=== PATIENT | female | born 1980 | race Caucasian/White ===

== ENCOUNTER 2019-01-02 01:20 | Inpatient (IN) ==
[2019-01-02] MEDS ORDERED: SODIUM CHLORIDE 0.9% 500 ML IV STA (01:35)
[2019-01-02] MEDS ORDERED: ONDANSETRON INJ 2 MG/ML 2 ML VIAL IV STA (01:35)
[2019-01-02] MEDS ORDERED: SODIUM CHLORIDE 0.9% 1000ML 1,000 ML IV ONE (01:35)
[2019-01-02] MEDS ORDERED: MoRPHine SULFATE 4 MG/ML 1 ML CARP\\VIAL IV STA ×2 (01:35→02:38)
[2019-01-02 01:49] LABS: Hematocrit (blood only) 33.1 % (37-47); Hemoglobin 11.8 g/dL (12.0-16.0); Mean Corpuscular Hemoglobin 31.1 pg (25-34); Mean Corpuscular Hgb Conc 35.6 g/dL (32-36); Mean Corpuscular Volume 87.3 fL (80-100); Mean Platelet Volume 9.5 fL (7.4-10.4); Platelet Count 192 K/uL (130-400); RDW Coefficient of Variation 13.2 % (11.5-14.5); RDW Standard Deviation 42.2 fL (36.4-46.3); Red Blood Count 3.79 M/uL (4.2-5.4); White Blood Count 10.54 K/uL (4.8-10.8)
[2019-01-02 02:14] LABS: Albumin Level 3.2 gm/dl (3.4-5.0); BUN Creatinine Ratio 16.3 (10-20); Calcium 8.6 mg/dl (8.5-10.1); Creatinine Clr Calc Pharmacy 89.7 ml/min; Est GFR (African American) 113.4; Est GFR (Non-African American) 97.8; Potassium 3.5 mmol/L (3.5-5.1)
[2019-01-02 02:16] LABS: Albumin Globulin Ratio 0.9 (0.9-2); Bilirubin,Total 0.3 mg/dl (0.2-1); Globulin 3.4 gm/dl (2.5-4.0); Total Protein 6.6 gm/dl (6.4-8.2)
[2019-01-02] MEDS ORDERED: ACETAMINOPHEN 1,000 MG/100 ML VIAL IV STA (02:38)
[2019-01-02 02:46] LABS: POC Urine Bilirubin Negative (Negative); POC Urine Blood 250 (Negative); POC Urine Glucose Normal (Normal); POC Urine Ketones Negative (Negative); POC Urine Leukocytes 1+ (Negative); POC Urine Nitrite Negative (Negative); POC Urine Protein Trace (Negative); POC Urine Urobilinogen Normal (Normal); POC Urine pH 6 (4.5-7.5)
[2019-01-02 02:51] LABS: Appearance Urine Cloudy (Clear); Bacteria Urine Automated 1+ (Negative); Bilirubin Urine Negative (Negative); Blood Urine 2+ (Negative); Color Urine Yellow; Epithelial Cell Urine Auto >30 /lpf (0-5); Glucose Urine UA Negative (Negative); Ketones Urine Negative (Negative); Leukocyte Esterase Urine 1+ (Negative); Nitrite Urine Negative (Negative); Protein Urine Trace (Negative); RBC Urine Automated >30 /hpf (0-4); Urobilinogen Urine Negative (Negative); WBC Urine Automated >30 /hpf (0-5)
--- NOTE | 2019-01-02 02:57 | Emergency Department Note ---
History of Present Illness General Chief complaint: Flank Pain Stated complaint: FLANK PAIN Time Seen by Provider: 01/02/19 01:25 History of Present Illness Maximum Pain Intensity: 6 This 38-year-old presents to the ER complaining of left flank pain Location: Left flank Quality: Achy Severity: Severe Duration: Today Timing: Symptoms started today Context: Patient was concerned and came in Modifying factors: better with nothing; worse with nothing Patient has a history of kidney stones. She is currently 24 weeks . No problems with the . Patient denies chest pain, dyspnea, fevers, abdominal pain, urinary symptoms, vaginal bleeding. Dr. Ramachandran is her urologist. Home Medications Home Medications Medication Instructions Recorded Confirmed Type prenat.vits,james,wup-ynas-hbeei 1 tab PO DAILY 11/26/18 01/02/19 History Allergies Allergy/AdvReac Type Severity Reaction Status Date / Time latex Allergy Mild redness/willy Verified 01/02/19 02:29 h Cipro Allergy Unknown RASH Verified 10/17/17 17:17 ciprofloxacin Allergy Unknown RASH Verified 01/02/19 02:29 Past Med/Surg History Medical History Fissure of female nipple History of kidney stones History of kidney stones History of nephrolithiasis History of ovarian cyst History of renal calculi History of spontaneous History of varicella Surgical History History of lithotripsy S/P LEEP (loop electrosurgical excision procedure) S/P section S/P eye surgery Family History Father Hypertension Prostate cancer Grandmother (Maternal) Ovarian cancer Social History Preferred Language: Latvian marital status: Feels Safe at Home: Yes Smoking Status: Never smoker Review of Systems All systems reviewed & are unremarkable except as noted in HPI & below Physical Exam Vital Signs Vital Signs - 24 hr 01/02/19 01:22 01/02/19 03:01 01/02/19 04:40 Temperature 36.6 C Temperature Source Oral Sepsis Recent Fever Within 48 Hours No Sepsis New/Unexplained Change in Mental Status No Sepsis Action Taken by Nursing No Action Required Pulse Rate 90 Pulse Rate [Finger] 92 H 80 Respiratory Rate 16 20 18 Respiratory Effort / Characteristics Non-Labored Spontaneous Non-Labored Non-Labored Respiratory Depth Normal Normal Normal Blood Pressure 120/80 Blood Pressure [Left Arm] 109/54 L 108/62 Blood Pressure Mean 93 Blood Pressure Mean [Left Arm] 72 77 Pulse Oximetry 99 100 100 Oxygen Delivery Method Room Air Room Air Room Air VITALS: Vitals are noted on the nurse's note and reviewed by myself. Vital signs stable. GENERAL: Pleasant female who appears in pain, in no acute distress, nondiaphoretic, well-developed well-nourished. SKIN: Capillary reflex less than 2 seconds. HEENT: Normocephalic. PERRLA. EOMI. Nares patent. Mucous membranes moist. Neck is supple without nuchal rigidity. HEART: Regular rate and rhythm without murmurs gallops or rubs. LUNGS: Clear to auscultation bilaterally without wheezes, rales or rhonchi. No retractions or accessory muscle use. ABDOMEN: Positive bowel sounds x 4. Normal tympanic percussion. Soft, 24 weeks , nontender, without masses or organomegaly. Valdovinos sign negative. No guarding or rebound tenderness. No CVA tenderness MUSCULOSKELETAL: No gross musculoskeletal defects. NEURO: Patient was alert and oriented to person place and time. Normal sensation to light and sharp touch. No focal neurological deficits. Course Administered Medications Discontinued Medications Sodium Chloride (Nss 1000ml) 1,000 mls @ 999 mls/hr IV .Q1H1M ONE Stop: 01/02/19 02:35 Last Infusion: 01/02/19 02:50 Dose: 0 mls/hr Documented by: [id number] Admin: 01/02/19 01:47 Dose: 999 mls/hr Documented by: [id number] Sodium Chloride (Nss) 500 mls @ 999 mls/hr IV .Q31M STA Stop: 01/02/19 02:05 Last Infusion: 01/02/19 03:35 Dose: 0 mls/hr Documented by: [id number] Admin: 01/02/19 03:04 Dose: 999 mls/hr Documented by: [id number] Acetaminophen (Ofirmev) 1,000 mg in 100 mls @ 400 mls/hr IV NOW STA Stop: 01/02/19 02:52 Last Infusion: 01/02/19 03:11 Dose: 0 mls/hr Documented by: [id number] Admin: 01/02/19 02:56 Dose: 400 mls/hr Documented by: [id number] Morphine Sulfate (Morphine Sulfate) 4 mg IV NOW STA Stop: 01/02/19 01:36 Last Admin: 01/02/19 01:47 Dose: 4 mg Documented by: [id number] Morphine Sulfate (Morphine Sulfate) 4 mg IV NOW STA Stop: 01/02/19 02:39 Last Admin: 01/02/19 02:45 Dose: 4 mg Documented by: [id number] Ondansetron HCl (Zofran) 4 mg IV NOW STA Stop: 01/02/19 01:36 Last Admin: 01/02/19 01:47 Dose: 4 mg Documented by: [id number] Medical Decision Making Medical Records Attestation: I reviewed the patient's medical records. Home Medications Current Medication List: was personally reviewed by me Laboratory Data Attestation: I reviewed the patient's lab results. Result diagrams: 01/02/19 01:30 01/02/19 01:30 Lab Results 01/02/19 01/02/19 01/02/19 Range/Units 01:30 01:30 02:35 WBC 10.54 (4.8-10.8) K/uL RBC 3.79 L (4.2-5.4) M/uL Hgb 11.8 L (12.0-16.0) g/dL Hct 33.1 L (37-47) % MCV 87.3 (80-100) fL MCH 31.1 (25-34) pg MCHC 35.6 (32-36) g/dL RDW Std Deviation 42.2 (36.4-46.3) fL RDW Coeff of Kapil 13.2 (11.5-14.5) % Plt Count 192 (130-400) K/uL MPV 9.5 (7.4-10.4) fL Sodium 139 (136-145) mmol/L Potassium 3.5 (3.5-5.1) mmol/L Chloride 107 (98-107) mmol/L Carbon Dioxide 25 (21-32) mmol/L Anion Gap 7.0 (3-11) BUN 13 (7-18) mg/dl Creatinine 0.78 (0.6-1.2) mg/dl Est Cr Clr Drug Dosing 89.7 ml/min Est GFR ( Amer) 113.4 Est GFR (Non-Af Amer) 97.8 BUN/Creatinine Ratio 16.3 (10-20) Glucose 85 (70-99) mg/dl Calcium 8.6 (8.5-10.1) mg/dl Total Bilirubin 0.3 (0.2-1) mg/dl AST 12 L (15-37) U/L ALT 20 (12-78) U/L Alkaline Phosphatase 72 (45-117) U/L Total Protein 6.6 (6.4-8.2) gm/dl Albumin 3.2 L (3.4-5.0) gm/dl Globulin 3.4 (2.5-4.0) gm/dl Albumin/Globulin Ratio 0.9 (0.9-2) Urine Color Urine Appearance (Clear) Urine pH (4.5-7.5) POC Urine pH 6 (4.5-7.5) Ur Specific [place] (1.000-1.030) Urine Protein (Negative) POC Urine Protein Trace H (Negative) Urine Glucose (UA) (Negative) POC Ur Glucose (UA) Normal (Normal) Urine Ketones (Negative) POC Urine Ketones Negative (Negative) Urine Blood (Negative) POC Urine Blood 250 H (Negative) Urine Nitrite (Negative) POC Urine Nitrite Negative (Negative) Urine Bilirubin (Negative) POC Urine Bilirubin Negative (Negative) Urine Urobilinogen (Negative) POC Urine Urobilinogen Normal (Normal) Ur Leukocyte Esterase (Negative) POC U Leukocyte Esteras 1+ H (Negative) Urine WBC (Auto) (0-5) /hpf Urine RBC (Auto) (0-4) /hpf U Hyaline Cast (Auto) (0-5) /lpf U Epithel Cells (Auto) (0-5) /lpf Urine Bacteria (Auto) (Negative) 01/02/19 Range/Units 02:35 WBC (4.8-10.8) K/uL RBC (4.2-5.4) M/uL Hgb (12.0-16.0) g/dL Hct (37-47) % MCV (80-100) fL MCH (25-34) pg MCHC (32-36) g/dL RDW Std Deviation (36.4-46.3) fL RDW Coeff of Kapil (11.5-14.5) % Plt Count (130-400) K/uL MPV (7.4-10.4) fL Sodium (136-145) mmol/L Potassium (3.5-5.1) mmol/L Chloride (98-107) mmol/L Carbon Dioxide (21-32) mmol/L Anion Gap (3-11) BUN (7-18) mg/dl Creatinine (0.6-1.2) mg/dl Est Cr Clr Drug Dosing ml/min Est GFR ( Amer) Est GFR (Non-Af Amer) BUN/Creatinine Ratio (10-20) Glucose (70-99) mg/dl Calcium (8.5-10.1) mg/dl Total Bilirubin (0.2-1) mg/dl AST (15-37) U/L ALT (12-78) U/L Alkaline Phosphatase (45-117) U/L Total Protein (6.4-8.2) gm/dl Albumin (3.4-5.0) gm/dl Globulin (2.5-4.0) gm/dl Albumin/Globulin Ratio (0.9-2) Urine Color Yellow Urine Appearance Cloudy A (Clear) Urine pH 6.0 (4.5-7.5) POC Urine pH (4.5-7.5) Ur Specific [place] 1.020 (1.000-1.030) Urine Protein Trace H (Negative) POC Urine Protein (Negative) Urine Glucose (UA) Negative (Negative) POC Ur Glucose (UA) (Normal) Urine Ketones Negative (Negative) POC Urine Ketones (Negative) Urine Blood 2+ H (Negative) POC Urine Blood (Negative) Urine Nitrite Negative (Negative) POC Urine Nitrite (Negative) Urine Bilirubin Negative (Negative) POC Urine Bilirubin (Negative) Urine Urobilinogen Negative (Negative) POC Urine Urobilinogen (Normal) Ur Leukocyte Esterase 1+ H (Negative) POC U Leukocyte Esteras (Negative) Urine WBC (Auto) >30 H (0-5) /hpf Urine RBC (Auto) >30 H (0-4) /hpf U Hyaline Cast (Auto) 5-10 H (0-5) /lpf U Epithel Cells (Auto) >30 H (0-5) /lpf Urine Bacteria (Auto) 1+ H (Negative) Imaging Data Attestation: I personally reviewed and interpreted this imaging study as follows: MDM Narrative Prior records/ancillary studies reviewed. Triage Nursing notes reviewed. The patient's history was concerning for left flank pain. Differential diagnosis: Etiologies such as renal colic, appendicitis, diverticulitis, mesenteric ischemia, aortic pathology, infections, inflammatory bowel disease, PUD, biliary pathology, UTI, as well as others were entertained. Physical examination findings: As above. ER treatment provided: Morphine, Zofran, Tylenol, Rocephin IV fluids On reassessment the patient felt better. Diagnostic interpretation by me: The labs revealed no leukocytosis. Urinalysis revealed concerns for infection. Imaging studies: US RENAL: Right: No hydronephrosis involving the right kidney although there is a prominent renal pelvis. Question presence of multiple renal stones, largest measuring 7 mm at the interpolar level. Echogenic pyramids suggests mesonephric calcinosis. Left: At least moderate hydronephrosis with dilatation of the proximal ureter. Distal ureters are well seen due to overlying bowel gas and gravid uterus. Multiple small stones involving left kidney. Cortical cyst at the interpolar level of the left kidney measures 1.1 cm Cortical cyst at the interpolar level of the left kidney is somewhat irregular in shape and measures up to 1.1 cm Mobile debris within the bladder lumen. Radiologist: Rayo Grissom M.D. Consultation: A consultation was placed with Dr [facility]. The case was discussed and diagnostics were reviewed. The patient was evaluated in the ER for further treatment. It appears that the patient has isolated renal colic from a left sided stone and UTI. Patient was started on antibiotics. Medicine was consulted. Patient is agreeable treatment plan of admission. By the evaluation outlined above emergent etiologies such as appendicitis, diverticulitis, mesenteric ischemia, aortic pathology, inflammatory bowel disease, PUD, biliary pathology, as well as others were deemed relatively unlikely. The pt informed about the findings as listed above. All questions were answered and pleased with the treatment. Case reviewed with my attending The chart was completed utilizing [employer] voice recognition software. Grammatical errors, random word insertions, pronoun errors, and incomplete sentences are an occassional consequence of this system due to software limitations, ambient noise, and hardware issues. Any formal questions or concerns about the content, text, or information contained within the body of this dictation should be directly addressed to the physician assistant branch operations manager for clarification. Impression & Plan Renal colic on left side, UTI (urinary tract infection), Ureterolithiasis Discharge Plan Visit Data Chief Complaint: Flank Pain Stated Complaint: FLANK PAIN ED Provider: Farnaz Escamilla ED Midlevel Provider: Vaishnavi Arauz Discharge Problem: Renal colic on left side, UTI (urinary tract infection), Ureterolithiasis Patient Disposition: Admitted As Inpatient Condition: Good Forms Stand Alone Forms: [facility] Prescriptions Prescriptions: No Action prenat.vits,james,uvp-mivv-yzhpi 1 tab PO DAILY RF: 0 Referrals Referrals: Pete Newberry MD [Primary Care Provider] -
[2019-01-02] MEDS ORDERED: ONDANSETRON INJ 2 MG/ML 2 ML VIAL IV PRN (07:30)
[2019-01-02] MEDS ORDERED: ACETAMINOPHEN 325 MG TAB PO PRN (07:30)
--- NOTE | 2019-01-02 07:41 | Ultrasound Report ---
ULTRASOUND KIDNEYS AND BLADDER CLINICAL HISTORY: Left flank pain. COMPARISON STUDY: Abdominal CT dated 10/18/2017. TECHNIQUE: Real-time, grayscale, and color flow sonography of the kidneys and bladder is performed. I mages are reviewed in the transverse and longitudinal planes. FINDINGS: Kidneys: The kidneys are normal in size and echotexture. The right kidney measures 10.2 cm in length and the left kidney measures 11.7 cm in length. There is moderate left hydroureteronephrosis. No hydr onephrosis is seen on the right. There are numerous nonobstructing renal calculi seen bilaterally. A 1.1 cm cyst is noted in the interpolar left kidney. There is no sonographic evidence of contour defor jazmin renal mass lesion. No perinephric fluid is identified. Bladder: The bladder is normal in morphology. Intraluminal debris is noted. Bilateral ureteral jets w ere seen. An intrauterine gestation is noted. IMPRESSION: 1. Bilateral nephrolithiasis. 2. The kidneys are normal in size. No hydronephrosis is seen on the right. 3. There is moderate left hydroureteronephrosis. Although this could be related to mass effect from t he gravid uterus, given the history of left flank pain and the presence of numerous renal calculi an obstructing ureteral stone is not excluded. 4. Debris is noted in the bladder lumen. Correlation with urinalysis will be required. Electronically signed by: Rafal Floyd M.D. 01/02/2019 7:40 AM
[2019-01-02] MEDS: MoRPHine SULFATE 2 MG/ML CARP IV PRN (08:05)
[2019-01-02] MEDS: SODIUM CHLORIDE 0.9% 1000ML 1,000 ML IV SCH ×2 (08:05→17:41)
--- NOTE | 2019-01-02 08:20 | History and Physical Report ---
DATE OF ADMISSION: 01/02/2019 CHIEF COMPLAINT: Left flank pain. HISTORY OF PRESENT ILLNESS: This is a 38-year-old female with past medical history significant for multiple kidney stones with history of cystoscopy, recently passed kidney stones by herself in October. She is 4, para 3, currently about 24 weeks , comes with left flank pain. The patient states the pain started a couple of days ago, but it got worse last night in the left flank radiating to groins, associated with some nausea, vomiting,mild burning micturition. She says she felt that she could not pass her urine thought she might had hydronephrosis and came to the ER. With IV fluids, she is able to micturate okay now. Ultrasound showed left hydronephrosis and multiple kidney stones. Official read is still pending. The patient denies any fever or chills. Somewhat constipated. Denies any blood in stools or black stools. No chest pain or shortness of breath. No cough, no headache, no blurred vision, no sore throat, no difficulty swallowing. Appetite is okay. Ambulating fine. No rash, no edema. Currently resting comfortably and hemodynamically stable, somewhat tearful because of pain and also because of her 3 kids at home. ALLERGIES: No known drug allergies. PAST MEDICAL HISTORY: As mentioned above. PAST SURGICAL HISTORY: , cystoscopies with stent placement. history of lithotripsy in 2014. MEDICATIONS: vitamins. FAMILY HISTORY: Significant for father had prostate cancer. Maternal grandmother had MOBILE DEVELOPER cancer. SOCIAL HISTORY: , smokes half pack a day. No alcohol use, no drug use. REVIEW OF SYMPTOMS: As per HPI. Rest of the review of systems is negative. PHYSICAL EXAMINATION: GENERAL: The patient is of moderate build, not in acute distress. VITAL SIGNS: Temperature 36.6, pulse 80, respiratory rate 18, blood pressure 108/62, oxygen saturation 100% on room air. HEENT: No pallor, no icterus. Pupils equal, round, reactive to light. NECK: No JVD, no neck masses, no carotid bruits. CARDIOVASCULAR: S1, S2 heard, regular rate and rhythm, no murmur, no gallop. RESPIRATORY SYSTEM: Normal AP diameter. No accessory muscle use. No wheezing, no crackles. ABDOMEN: Soft, bowel sounds present. Left CVA tenderness present. CENTRAL NERVOUS SYSTEM: Cranial nerves II-XII grossly intact, nonfocal. EXTREMITIES: No edema, no erythema. LABORATORY DATA: WBC 10.5, hemoglobin 11.8, hematocrit 33.1, platelets 192. Sodium 139, potassium 3.5, chloride 107, bicarbonate 25, BUN 13, creatinine 0.7, serum glucose 85, calcium 8.6, total bilirubin 0.3, AST 12, ALT 20, alkaline phosphatase 72. Urinalysis cloudy and positive for blood and also for leukocyte esterase. Renal ultrasound, unofficial report - moderate left hydronephrosis with dilatation in the proximal ureter on the left side. Multiple small stones in the left kidney. No hydronephrosis in the right kidney, though there is a prominent renal pelvis, question of presence of multiple renal stones, largest measuring 7 mm at the interpolar level. ASSESSMENT AND PLAN: This is a 38-year-old female who presents with left flank pain, found to have left hydronephrosis, possible obstructing kidney stone with bilateral multiple kidney stones. 1. Kidney stones, multiple on both sides with moderate left hydronephrosis, comes with left flank pain. History of kidney stones and cystoscopies in the past. Follows with urology. We will keep her n.p.o., IV fluids, pain control, and IV Zofran p.r.n. for nausea and consult urology. To keep her n.p.o. until seen by urology. 2. Possible urinary tract infection. In Emergency Room received Rocephin. We will continue same until the cultures are back. 3. . 4, para 3, with 24 weeks' , seems to be doing okay. We will consult obstetrics/gynecology while she is in the hospital. 4. Deep venous thrombosis prophylaxis, sequential compression devices. DISPOSITION: Admit to medical floor. Expect to discharge home and follow with family doctor. Level 1, full code. MTDD
--- NOTE | 2019-01-02 08:36 | Urology Consultation ---
Date of Consultation January 02, 2019 Assessment & Plan (1) Renal colic on left side: 38 YO F 24 weeks with likely left ureteral stone, renal colic, mild/moderate left hydro on Renal US, ?UTI. History of multiple stones with spontaneous passage. Patient spontaneously passed 2 stones at home ~2 weeks ago. Her pain is currently controlled, remains on ceftriaxone. Afebrile. Labs stable. Will avoid surgical intervention unless there is a worsening of patient status. Please contact our service should uncontrolled pain or fever develop for urgent stent placement. Will continue to follow. (2) : (3) Ureterolithiasis: (4) UTI (urinary tract infection): History of Present Illness Attending Physician: Constantine Dee MD History of Present Illness 38 YO F 24 weeks with likely left ureteral stone, renal colic, mild/moderate left hydro on Renal US, ?UTI. Hx of nephrolithiasis with spontaneous stone passage. Last seen by Dr. Ramachandran in 2018. Reports passing 2 stones spontaneously at home ~2 weeks ago without too much difficulty. Also reports spontaneous stone passage in her previous pregnancies ~10 years ago. Appears comfortable this morning. Pain is controlled with medication. No fevers/chills. No nausea/vomiting. Labs and US reviewed. Allergies Allergy/AdvReac Type Severity Reaction Status Date / Time latex Allergy Mild redness/willy Verified 01/02/19 02:29 h Cipro Allergy Unknown RASH Verified 10/17/17 17:17 ciprofloxacin Allergy Unknown RASH Verified 01/02/19 02:29 Home Medications Home Medications Medication Instructions Recorded Confirmed Type prenat.vits,james,bfa-qkkh-gnirg 1 tab PO DAILY 11/26/18 01/02/19 History Patient History Medical History Fissure of female nipple History of kidney stones History of kidney stones History of nephrolithiasis History of ovarian cyst History of renal calculi History of spontaneous History of varicella Surgical History History of lithotripsy S/P LEEP (loop electrosurgical excision procedure) S/P section S/P eye surgery Family History Father Hypertension Prostate cancer Grandmother (Maternal) Ovarian cancer Social History Preferred Language: Greek Communication Ability: Effective Maintenance Team Member Required: No Beliefs That Will Affect Care: None marital status: Current Living Situation: Spouse and Family Other Information That Helps Us Care for You: No Feels Safe at Home: Yes Safety Concerns: Feels Safe At This Time Smoking Status: Former smoker Tobacco Cessation Education Requested by Patient: No Hx Alcohol Use: No Hx Substance Use: No Review of Systems Constitutional: no fever and no chills Eyes: no worsening vision Ear, Nose, Mouth, Throat: no hearing loss Respiratory: no dyspnea Cardiovascular: no chest pain Gastrointestinal: no nausea and no vomiting Genitourinary: + flank pain; no difficulty urinating Neurologic: no confusion Psychiatric: no problem reported Endocrine: no fatigue Physical Exam Constitutional: WD/WN, vitals as above ENMT: Ears: no hearing impairment Neck: normal visual inspection Respiratory: normal respiratory effort; does not use accessory muscles Cardiovascular: Vessels: no JVD Skin: no rashes, warm and dry Psychiatric: A+Ox3, euthymic affect Results & Data Vital Signs (Past 12 Hours) Vital Signs Temp Pulse Pulse Resp BP BP Pulse Ox 01/02/19 06:55 36.5 C 75 16 116/71 99 01/02/19 06:40 77 20 112/57 L 98 01/02/19 04:40 80 18 108/62 100 01/02/19 03:01 92 H 20 109/54 L 100 01/02/19 01:22 36.6 C 90 16 120/80 99
--- NOTE | 2019-01-02 09:42 | OB/GYN Consultation ---
Date of Consultation January 02, 2019 Assessment & Plan (1) Renal colic on left side: (2) Ureterolithiasis: The patient is certainly stable from an obstetrical standpoint. Agree with plan of aggressive hydration and try to avoid surgery. Patient's IV fluids only running at 100 cc/h. Patient could easily tolerate 200 cc/h if felt to be clinically prudent. From an obstetrical standpoint I do not see any reason for the patient to be n.p.o. Antibiotic choice appropriate for . Would recommend heart tones being checked every shift, and call with any questions problems or difficulties. History of Present Illness Reason for Consultation: 23-1/2 weeks gestational age with left ureteral stone 23+ weeks gestational age with left ureteral stone Attending Physician: Constantine Dee MD History of Present Illness Patient is a 38-year-old 7 para 3 with an EDC of 28 April at 23+ weeks gestational age admitted to the hospitalist service with left ureteral stoneThe patient was having pain at home and tried to self hydrate. Patient is having difficulty urinating and presented to the emergency room for evaluation. The patient has a history of kidney stones both with and without . She has had previous surgery for kidney stones. Patient was able to spontaneously passed 2 stones in October. The patient has had an unremarkable course today. Her blood type is B+, antibody negative, rubella immune, hepatitis B negative, she had a negative cell free DNA screen, she had an abnormal Pap smear with colposcopy showing mild dysplasia. Allergies Allergy/AdvReac Type Severity Reaction Status Date / Time latex Allergy Mild redness/willy Verified 01/02/19 02:29 h Cipro Allergy Unknown RASH Verified 10/17/17 17:17 ciprofloxacin Allergy Unknown RASH Verified 01/02/19 02:29 Home Medications Home Medications Medication Instructions Recorded Confirmed Type prenat.vits,james,pmn-[id number]-piqoc 1 tab PO DAILY 11/26/18 01/02/19 History Patient History Medical History Fissure of female nipple History of kidney stones History of kidney stones History of nephrolithiasis History of ovarian cyst History of renal calculi History of spontaneous History of varicella Surgical History History of lithotripsy S/P LEEP (loop electrosurgical excision procedure) S/P section S/P eye surgery Family History Father Hypertension Prostate cancer Grandmother (Maternal) Ovarian cancer Social History Preferred Language: Hungarian Communication Ability: Effective Pot Feeder Required: No Beliefs That Will Affect Care: None marital status: Current Living Situation: Spouse and Family Other Information That Helps Us Care for You: No Feels Safe at Home: Yes Safety Concerns: Feels Safe At This Time Smoking Status: Former smoker Tobacco Cessation Education Requested by Patient: No Hx Alcohol Use: No Hx Substance Use: No Physical Exam Physical Exam: Gravid female in no acute distress, positive heart tones, remainder of examination deferred Results & Data Vital Signs (Past 12 Hours) Vital Signs Temp Pulse Pulse Resp BP BP Pulse Ox 01/02/19 06:55 97.7 F 75 16 116/71 99 01/02/19 06:40 77 20 112/57 L 98 01/02/19 04:40 80 18 108/62 100 01/02/19 03:01 92 H 20 109/54 L 100 01/02/19 01:22 97.9 F 90 16 120/80 99 PG Care Time/CCT Total # of Minutes Spent Total Time Spent with Patient: Total time spent is greater than 50% in coordination of care (as documented) at patient's floor/unit and/or counseling patient:
[2019-01-02] MEDS: PRENATAL VITAMIN 1 TAB PO SCH (11:01)
--- NOTE | 2019-01-02 18:48 | History & Physical Bridge Note ---
Date of Service January 02, 2019 History & Physical Bridge Note Patient seen and examined today. No pain on my exam in the afternoon. Will cont ceftriaxone and follow culture results. Hopeful discharge tomorrow.
[2019-01-03] MEDS: SODIUM CHLORIDE 0.9% 1000ML 1,000 ML IV SCH (02:28)
[2019-01-03 08:02] LABS: Hematocrit (blood only) 27.4 % (37-47); Hemoglobin 9.5 g/dL (12.0-16.0); Mean Corpuscular Hemoglobin 30.7 pg (25-34); Mean Corpuscular Hgb Conc 34.7 g/dL (32-36); Mean Corpuscular Volume 88.7 fL (80-100); Mean Platelet Volume 9.1 fL (7.4-10.4); Platelet Count 141 K/uL (130-400); RDW Coefficient of Variation 13.5 % (11.5-14.5); RDW Standard Deviation 43.2 fL (36.4-46.3); Red Blood Count 3.09 M/uL (4.2-5.4); White Blood Count 8.13 K/uL (4.8-10.8)
[2019-01-03] MEDS: MoRPHine SULFATE 2 MG/ML CARP IV PRN (08:21)
[2019-01-03 08:29] LABS: Creatinine Clr Calc Pharmacy 122.8 ml/min; Est GFR (African American) 138.2; Est GFR (Non-African American) 119.3; Potassium 3.7 mmol/L (3.5-5.1)
[2019-01-03] MEDS: PRENATAL VITAMIN 1 TAB PO SCH (08:31)
[2019-01-03] MEDS ORDERED: cefTRIAXone SODIUM 1,000 MG in DEXTROSE 5% 50 ML IV SCH (09:00)
--- NOTE | 2019-01-03 10:15 | Urology Progress Note ---
Date of Service January 03, 2019 Assessment & Plan (1) Renal colic on left side: 38 YO F 24 weeks with likely left ureteral stone, renal colic, mild/moderate left hydro on Renal US, ?UTI. Patient feeling much better today. UC&S pending - recommend antibiotics per sensitivities for a total of 10d of therapy if positive. Pain control PRN. Outpatient urology follow up has been arranged. Thank you for allowing us to participate in the inpatient care of Ms. Vallejo. Please contact our service if we can assist further. (2) UTI (urinary tract infection): (3) Ureterolithiasis: Subjective 38 YO F 24 weeks with likely left ureteral stone, renal colic, mild/moderate left hydro on Renal US, ?UTI. Patient reports feeling much better this morning. Pain controlled. No fevers/chills. No nausea/vomiting. Voiding spontaneously. Review of Systems Review of Systems: Per HPI. Physical Exam Physical Exam: WN/WD NAD +. Resp effort normal. No JVD. A&Ox3, appropriate affect. Results & Data Vital Signs (Past 12 Hours) Vital Signs Temp Pulse Pulse Resp BP BP Pulse Ox 01/03/19 07:52 36.7 C 72 18 94/58 L 95 01/02/19 23:07 37.0 C 82 16 90/50 L 82/40 L 96
--- NOTE | 2019-01-03 18:10 | Discharge Summary ---
Date of Service January 03, 2019 Principal Diagnosis Kidney stone Discharge Exam Constitutional WD/WN, vitals as above ENMT Ears: no hearing impairment Neck normal visual inspection Respiratory normal respiratory effort; does not use accessory muscles Cardiovascular Vessels: no JVD Skin no rashes, warm and dry Psychiatric A+Ox3, euthymic affect Discharge Data Allergies Allergy/AdvReac Type Severity Reaction Status Date / Time latex Allergy Mild redness/willy Verified 01/02/19 02:29 h Cipro Allergy Unknown RASH Verified 10/17/17 17:17 ciprofloxacin Allergy Unknown RASH Verified 01/02/19 02:29 Consultations 01/02/19 05:25 ED Decision to Admit Stat 01/02/19 06:09 ED Decision to Admit Stat 01/02/19 08:00 Consult Obstetrics Routine Consult Urology Routine Ordered Studies 01/02/19 01:35 US renal/blad retro comp Urgent Hospital Course (1) Renal colic on left side: 38 YO F 24 weeks with likely left ureteral stone, renal colic, mild/moderate left hydro on Renal US, ?UTI. Patient feeling much better today. - Dishcarged on 10 days of cefdinir as the urine culture grew out 3 bugs and was likely skin deepika. Had improved on ceftriaxone, so continued that. 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 (2) UTI (urinary tract infection): (3) Ureterolithiasis: As above Total Time Total Time Spent Total Time Spent (In Minutes): 34 Discharge Plan Discharge Items Patient Disposition: Home - Self-Care Reason For Visit: LEFT FLANK PAIN Discharge Diagnosis: Left kidney stone Condition: Good Discharge Goals: Decrease discomfort and Improve function Activity: Resume your previous activity Non-emergency contact: Primary Care Provider and Urologist Call non-emergency contact if: your symptoms worsen, your pain is not controlled, your pain is worsening and your temperature is above 101 Follow-up/Referrals: [facility] Obstetrics & Gynecology [Provider Group] - 01/06/19 11:30 am (Please, follow up at [facility] Office on SundayJanuary 06 at 11:30 am. *If you need to change this appointment, call the office at [phone].) Pete Newberry MD [Primary Care Provider] - Diet: Regular Addtl Provider Instructions: Ms. Vallejo, You were admitted to the hospital for a kidney stone on the left side. You do have multiple kidney stones on either side. Please drink plenty of water to help pass this stone. We have given you scripts for an antibiotic (Omnicef), pain control, and nausea. Take the antibiotic starting tomorrow morning and take it until it is gone or until the urologist tells you to stop it. Please use Tylenol for the pain first, then oxycodone if needed. As we discussed, if you need the oxycodone for more than 1-2 more doses, please call your transplant registered nurse and the urology office, or come directly to the hospital. Prescriptions: New cefdinir 300 mg capsule 300 mg PO BID Qty: 16 RF: 0 oxycodone 5 mg tablet 2.5 mg PO TID PRN (Reason: pain) Qty: 3 RF: 0 ondansetron 4 mg tablet,disintegrating 4 mg PO Q6H PRN (Reason: nausea and vomiting) Qty: 20 RF: 0 Continued prenat.vits,james,[id number] 1 tab PO DAILY RF: 0 Stand-Alone Forms: [facility] Discharge Orders: Discharge Order (Routine); Ordered 01/03/19 Ordered By: Constantine Dee Admission Data Admit Date/Time: 01/02/19 05:50 Attending Provider: Constantine Dee Admit Provider: Harish Rebolledo Primary Care Provider: Pete Newberry Other Providers: Constantine Dee ; Harish Rebolledo ; Baldomero Serrano ; Micaela Hogan J. Frederick ; Merna Hein ; Rad Bahena Jr ; Melly Martinez ; Sneha Miranda ; Kylee Grant ; Sierra Rubio ; Tiffanie Kate ; Kim Stewart ; Paula Solomon ; Du Drake ; Tomy Ramachandran Service: Medical Other Interventions: Discharge Summary Assessment (RN) Last Done: 01/03/19 13:03 DC Date/Time DO NOT enter until pt leaves facility: 01/03/19 14:16
[2019-01-04] MEDS ORDERED: [UNRECOGNIZED DRUG - OTHER] PO SCH (09:00)
== END 2019-01-03 14:16 | disposition home or self-care (01) | DRG 832 ==
LOC: ED 01:20 → SUATTDRO 05:50 → 3W 05:50

== ENCOUNTER 2019-02-22 18:12 | Inpatient (IN) ==
[2019-02-22] MEDS ORDERED: ONDANSETRON INJ 2 MG/ML 2 ML VIAL IV STA ×2 (18:32→21:30)
[2019-02-22] MEDS ORDERED: SODIUM CHLORIDE 0.9% 1000ML 1,000 ML IV SCH (18:45)
[2019-02-22 18:52] LABS: Basophils # (auto) 0.01 K/uL (0-0.2); Basophils % (auto) 0.1 %; Eosinophils # (auto) 0.05 K/uL (0-0.5); Eosinophils % (auto) 0.4 %; Hematocrit (blood only) 31.6 % (37-47); Hemoglobin 10.8 g/dL (12.0-16.0); Immature Granulocytes # (auto) 0.05 K/uL (0.00-0.02); Immature Granulocytes % (auto) 0.4 %; Lymphocytes % (auto) 13.1 %; Mean Corpuscular Hemoglobin 30.4 pg (25-34); Mean Corpuscular Hgb Conc 34.2 g/dL (32-36); Mean Platelet Volume 9.4 fL (7.4-10.4); Monocytes # (auto) 0.49 K/uL (0.11-0.59); Monocytes % (auto) 4.3 %; Neutrophils # (auto) 9.34 K/uL (1.4-6.5); Neutrophils % (auto) 81.7 %; Platelet Count 218 K/uL (130-400); RDW Coefficient of Variation 13.7 % (11.5-14.5); RDW Standard Deviation 45.1 fL (36.4-46.3); Red Blood Count 3.55 M/uL (4.2-5.4); White Blood Count 11.44 K/uL (4.8-10.8)
[2019-02-22] MEDS: MoRPHine SULFATE 4 MG/ML 1 ML CARP\\VIAL IV PRN ×5 (18:54→22:43)
[2019-02-22 19:13] LABS: Appearance Urine Cloudy (Clear); Bacteria Urine Automated 2+ (Negative); Bilirubin Urine Negative (Negative); Blood Urine 3+ (Negative); Color Urine Yellow; Epithelial Cell Urine Auto >30 /lpf (0-5); Glucose Urine UA Negative (Negative); Ketones Urine Negative (Negative); Leukocyte Esterase Urine Trace (Negative); Nitrite Urine Negative (Negative); Protein Urine 1+ (Negative); RBC Urine Automated >30 /hpf (0-4); Specific Gravity Urine 1.023 (1.000-1.030); Urobilinogen Urine Negative (Negative); pH Urine 6.5 (4.5-7.5)
[2019-02-22 19:14] LABS: Albumin Globulin Ratio 0.8 (0.9-2); Albumin Level 2.8 gm/dl (3.4-5.0); BUN Creatinine Ratio 16.4 (10-20); Bilirubin,Total 0.2 mg/dl (0.2-1); Calcium 8.7 mg/dl (8.5-10.1); Creatinine Clr Calc Pharmacy 90.9 ml/min; Est GFR (African American) 115.1; Est GFR (Non-African American) 99.3; Globulin 3.5 gm/dl (2.5-4.0); Potassium 3.9 mmol/L (3.5-5.1); Total Protein 6.3 gm/dl (6.4-8.2)
[2019-02-22 19:32] LABS: Calcium Oxalate Crystals Urine Present (None Prsent); Renal Epithelial Cells Urine 0-5 /lpf (0-5)
--- NOTE | 2019-02-22 19:36 | Ultrasound Report ---
RENAL ULTRASOUND CLINICAL HISTORY: Left flank pain. History of stones. . COMPARISON STUDY: CT of the abdomen and pelvis October 18, 2017. Renal ultrasound February 16, 2019. TECHNIQUE: Sonography of the kidneys and the urinary bladder was performed. FINDINGS: The right kidney measures 9.8 cm in maximal dimension and the left measures 10.6 cm. Modera te left hydronephrosis has developed since exam of February 16, 2019. Right hydronephrosis shown on pr ior exam has nearly completely resolved. No ureteral calculi identified although these are often occu lt by sonography of the distal ureters are obscured by a gravid uterus. The bladder is not well asses sed on this exam. Single viable intrauterine gestation is noted. Bilateral nephrolithiasis is noted. IMPRESSION: 1. Interval development of moderate left hydronephrosis with near complete resolution of right hydron ephrosis since ultrasound of February 16, 2019. This finding could be due to mass effect from the grav id uterus or an occult ureteral calculus. 2. Bilateral nephrolithiasis. Electronically signed by: Raudel Callejas M.D. 02/22/2019 7:35 PM
[2019-02-22] MEDS ORDERED: ACETAMINOPHEN 1,000 MG/100 ML VIAL IV STA (19:59)
[2019-02-22] MEDS ORDERED: cefTRIAXone SODIUM 1,000 MG/50 ML BAG IV STA (20:26)
--- NOTE | 2019-02-22 22:17 | Emergency Department Note ---
Entered by Obdulio Martinez acting as a scribe for History of Present Illness General Chief complaint: Kidney Stone Stated complaint: KIDNEY STONES, PASSED SEVERAL, 31 WEEKS PREG Time Seen by Provider: 02/22/19 18:28 Source: patient Limitations: no limitations History of Present Illness Onset (ago): hour(s) 3 Location: left (flank) Severity: similar to prior episodes Pain Consistency: + constant Maximum Pain Intensity: 10 Current Pain Intensity: 8 Quality: + constant Associated symptoms: no fever/chills Treatments prior to arrival: other (tylenol, percocet) The patient is a 38 year old female who presents to the Emergency Room with complaints of constant left-sided flank pain starting 3 hours ago. The patient states she has had about 60 kidney stones before. She states she was admitted to the hospital a month ago for kidney stones and a kidney infection. She states she was told she had 3 kidney stones at that time. She notes she was in the ED 6 days ago. She states she has passed 2 kidney stones. She notes she took Tylenol at 1200 and then took it again at 1600. She notes she took a Percocet later on in the day because her pain did not subside. She states her pain is 8/10. The patient states she is 31 weeks right now and states she had 4 children at home. 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 The patient states she has had stents and surgeries before. She denies having a fever. Home Medications Home Medications Medication Instructions Recorded Confirmed Type prenat.vits,james,[id number] 1 tab PO DAILY 11/26/18 02/22/19 History acetaminophen [Tylenol Extra 500 mg PO DIRECTED PRN 02/16/19 02/22/19 History Strength] ondansetron 4 mg PO Q6H PRN 02/16/19 02/22/19 History oxycodone-acetaminophen 1 tab PO Q8H PRN 02/16/19 02/22/19 History Allergies Allergy/AdvReac Type Severity Reaction Status Date / Time latex Allergy Mild redness/willy Verified 02/22/19 18:44 h Cipro Allergy Unknown RASH Verified 10/17/17 17:17 ciprofloxacin Allergy Unknown RASH Verified 02/22/19 18:44 Past Med/Surg History Medical History Right lower quadrant abdominal pain (Resolved) UTI (urinary tract infection) (Resolved) Fissure of female nipple History of kidney stones History of kidney stones History of nephrolithiasis History of ovarian cyst History of renal calculi History of spontaneous History of varicella Surgical History H/O cystoscopy (Resolved) H/O lithotripsy (Resolved) History of delivery (Resolved) History of lithotripsy S/P LEEP (loop electrosurgical excision procedure) S/P section S/P eye surgery Family History Father Hypertension Prostate cancer Grandmother (Maternal) Ovarian cancer Social History Preferred Language: Maltese Communication Ability: Effective Documentation Billing Clerk Required: No Beliefs That Will Affect Care: None marital status: Current Living Situation: Spouse and Family Feels Safe at Home: Yes Safety Concerns: Feels Safe At This Time Smoking Status: Former smoker Hx Alcohol Use: No Hx Substance Use: No Review of Systems See HPI for pertinent positives & negatives. and A total of 10 systems reviewed and were otherwise negative Physical Exam Vital Signs Vital Signs - 24 hr 02/22/19 18:15 02/22/19 20:06 Temperature 36.7 C Temperature Source Oral Sepsis Recent Fever Within 48 Hours No Sepsis New/Unexplained Change in Mental Status No Sepsis Action Taken by Nursing No Action Required Pulse Rate 88 Pulse Rate [Right] 71 Pulse Rhythm Regular Pulse Rhythm [Right] Regular Pulse Strength Normal Pulse Strength [Right] Normal Respiratory Rate 22 18 Respiratory Effort / Characteristics Non-Labored Spontaneous Non-Labored Spontaneous Respiratory Depth Normal Normal Respiratory Pattern Regular Regular Blood Pressure 121/74 Blood Pressure [Right Arm] 116/79 Blood Pressure Mean 89 Blood Pressure Mean [Right Arm] 91 Blood Pressure Position Sitting Blood Pressure Position [Right Arm] Sitting Pulse Oximetry 99 100 Oxygen Delivery Method Room Air GENERAL: Patient is awake, alert, and in no acute distress.Patient is resting comfortably and is somewhat anxious appearing. EYES: The conjunctivae are clear. The pupils are round and reactive. EARS, NOSE, MOUTH AND THROAT: The nose is without any evidence of any deformity. Mucous membranes are moist.Tongue is midline NECK: The neck is nontender and supple. RESPIRATORY: Normal respiratory effort is noted. There is no evidence of whe ezing rhonchi or rales to auscultation. CARDIOVASCULAR: Regular rate and rhythm noted. There no murmurs rubs or gallops normal S1 normal S2 GASTROINTESTINAL: The abdomen is soft, gravid in appearance. Bowel sounds are present in all quadrants. There is no tenderness, rigidity, or guarding. BACK: No midline tenderness or or step-off noted range of motion in flexion extension as well as rotation no signs of muscle spasm noted. MUSCULOSKELETAL/EXTREMITIES: There is no evidence of gross deformity. Full range of motion is noted in the hips and shoulders. SKIN: There is no obvious evidence of any rash. There are no petechiae, pallor or cyanosis noted. NEUROLOGIC: Patient is awake alert and oriented x3. Course 1828: The patient was evaluated in room B5, and a complete history and physical examination were performed. 2019: I spoke with Dr. Farfan - [facility]. He recommends medical admission with OB consult to manage the patient's condition. 2034: I [facility] the [facility] will evaluate the patient for further management Administered Medications Sodium Chloride (Nss 1000ml) 1,000 mls @ 125 mls/hr IV .Q8H SRINIVAS Stop: 03/24/19 23:30 Last Infusion: 02/23/19 00:40 Dose: 125 mls/hr Documented by: [id number] Infusion: 02/23/19 00:26 Dose: 0 mls/hr Documented by: [id number] Admin: 02/23/19 00:25 Dose: 125 mls/hr Documented by: [id number] Acetaminophen (Ofirmev) 1,000 mg in 100 mls @ 400 mls/hr IV Q8 SRINIVAS Stop: 03/25/19 00:00 Last Infusion: 02/23/19 00:40 Dose: 0 mls/hr Documented by: [id number] Infusion: 02/23/19 00:26 Dose: 400 mls/hr Documented by: [id number] Admin: 02/23/19 00:25 Dose: 400 mls/hr Documented by: [id number] Morphine Sulfate (Morphine Sulfate) 2 mg IV Q3H PRN PRN Reason: Pain Stop: 03/08/19 23:30 Last Admin: 02/23/19 01:42 Dose: 2 mg Documented by: [id number] Promethazine HCl (Phenergan) 12.5 mg PO Q6H PRN PRN Reason: Nausea And Vomiting Stop: 03/25/19 01:15 Last Admin: 02/23/19 01:42 Dose: 12.5 mg Documented by: [id number] Discontinued Medications Sodium Chloride (Nss 1000ml) 1,000 mls @ 999 mls/hr IV .Q1H1M SRINIVAS Stop: 02/22/19 19:45 Last Infusion: 02/22/19 20:05 Dose: 0 mls/hr Documented by: [id number] Admin: 02/22/19 18:54 Dose: 999 mls/hr Documented by: [id number] Acetaminophen (Ofirmev) 1,000 mg in 100 mls @ 400 mls/hr IV NOW STA Stop: 02/22/19 20:13 Last Infusion: 02/22/19 20:32 Dose: 0 mls/hr Documented by: [id number] Admin: 02/22/19 20:04 Dose: 400 mls/hr Documented by: [id number] Ceftriaxone Sodium (Rocephin) 1,000 mg in 50 mls @ 100 mls/hr IV NOW STA Stop: 02/22/19 20:55 Last Infusion: 02/22/19 21:40 Dose: 0 mls/hr Documented by: [id number] Admin: 02/22/19 21:03 Dose: 100 mls/hr Documented by: [id number] Morphine Sulfate (Morphine Sulfate) 4 mg IV Q15M PRN PRN Reason: Pain Stop: 03/08/19 18:31 Last Admin: 02/22/19 22:43 Dose: 4 mg Documented by: [id number] Admin: 02/22/19 21:55 Dose: 4 mg Documented by: [id number] Admin: 02/22/19 21:05 Dose: 4 mg Documented by: [id number] Admin: 02/22/19 20:04 Dose: 4 mg Documented by: [id number] Admin: 02/22/19 18:54 Dose: 4 mg Documented by: [id number] Ondansetron HCl (Zofran) 4 mg IV NOW STA Stop: 02/22/19 18:33 Last Admin: 02/22/19 18:54 Dose: 4 mg Documented by: [id number] Ondansetron HCl (Zofran) 4 mg IV NOW STA Stop: 02/22/19 21:31 Last Admin: 02/22/19 21:55 Dose: 4 mg Documented by: [id number] Medical Decision Making Differential Diagnosis Differential diagnoses includes but is not limited to gastritis, peptic ulcer disease, GERD, gallbladder disease, pancreatitis, small bowel obstruction, acute coronary syndrome, pericarditis, ischemic bowel, irritable bowel disease, irritable bowel syndrome, appendicitis, diverticulitis, malignancy, hernia, urinary tract infection, torsion, /ectopic , perforation, trauma, infectious. Medical Records Attestation: I reviewed the patient's medical records. Home Medications Current Medication List: was personally reviewed by me Laboratory Data Attestation: I reviewed the patient's lab results. Result diagrams: 02/22/19 18:46 02/22/19 18:46 Lab Results 02/22/19 02/22/19 02/22/19 Range/Units 18:23 18:46 18:46 WBC 11.44 H (4.8-10.8) K/uL RBC 3.55 L (4.2-5.4) M/uL Hgb 10.8 L (12.0-16.0) g/dL Hct 31.6 L (37-47) % MCV 89.0 (80-100) fL MCH 30.4 (25-34) pg MCHC 34.2 (32-36) g/dL RDW Std Deviation 45.1 (36.4-46.3) fL RDW Coeff of Kapil 13.7 (11.5-14.5) % Plt Count 218 (130-400) K/uL MPV 9.4 (7.4-10.4) fL Immature Gran % (Auto) 0.4 % Neut % (Auto) 81.7 % Lymph % (Auto) 13.1 % Wells % (Auto) 4.3 % Eos % (Auto) 0.4 % Baso % (Auto) 0.1 % Immature Gran # (Auto) 0.05 H (0.00-0.02) K/uL Neut # (Auto) 9.34 H (1.4-6.5) K/uL Lymph # (Auto) 1.50 (1.2-3.4) K/uL Wells # (Auto) 0.49 (0.11-0.59) K/uL Eos # (Auto) 0.05 (0-0.5) K/uL Baso # (Auto) 0.01 (0-0.2) K/uL Sodium 138 (136-145) mmol/L Potassium 3.9 (3.5-5.1) mmol/L Chloride 108 H (98-107) mmol/L Carbon Dioxide 23 (21-32) mmol/L Anion Gap 7.0 (3-11) BUN 13 (7-18) mg/dl Creatinine 0.77 (0.6-1.2) mg/dl Est Cr Clr Drug Dosing 90.9 ml/min Est GFR ( Amer) 115.1 Est GFR (Non-Af Amer) 99.3 BUN/Creatinine Ratio 16.4 (10-20) Glucose 100 H (70-99) mg/dl Calcium 8.7 (8.5-10.1) mg/dl Total Bilirubin 0.2 (0.2-1) mg/dl AST 11 L (15-37) U/L ALT 16 (12-78) U/L Alkaline Phosphatase 106 (45-117) U/L Total Protein 6.3 L (6.4-8.2) gm/dl Albumin 2.8 L (3.4-5.0) gm/dl Globulin 3.5 (2.5-4.0) gm/dl Albumin/Globulin Ratio 0.8 L (0.9-2) Lipase 118 (73-393) U/L Specimen Hemolysis Urine Color Yellow Urine Appearance Cloudy A (Clear) Urine pH 6.5 (4.5-7.5) Ur Specific [place] 1.023 (1.000-1.030) Urine Protein 1+ H (Negative) Urine Glucose (UA) Negative (Negative) Urine Ketones Negative (Negative) Urine Blood 3+ H (Negative) Urine Nitrite Negative (Negative) Urine Bilirubin Negative (Negative) Urine Urobilinogen Negative (Negative) Ur Leukocyte Esterase Trace H (Negative) Urine WBC (Auto) 10-30 H (0-5) /hpf Urine RBC (Auto) >30 H (0-4) /hpf U Hyaline Cast (Auto) 10-30 H (0-5) /lpf U Epithel Cells (Auto) >30 H (0-5) /lpf Urine Bacteria (Auto) 2+ H (Negative) Ur Renal Epithelial Cell 0-5 (0-5) /lpf Calcium Oxalate Crystal Present A (None Prsent) Imaging Data Radiologist's Impression: Radiology results as stated below per my review and the radiologist's interpretation: RENAL ULTRASOUND CLINICAL HISTORY: Left flank pain. History of stones. . COMPARISON STUDY: CT of the abdomen and pelvis October 18, 2017. Renal ultrasound February 16, 2019. TECHNIQUE: Sonography of the kidneys and the urinary bladder was performed. FINDINGS: The right kidney measures 9.8 cm in maximal dimension and the left measures 10.6 cm. Moderate left hydronephrosis has developed since exam of February 16, 2019. Right hydronephrosis shown on prior exam has nearly completely resolved. No ureteral calculi identified although these are often occult by sonography of the distal ureters are obscured by a gravid uterus. The bladder is not well assessed on this exam. Single viable intrauterine gestation is noted. Bilateral nephrolithiasis is noted. IMPRESSION: 1. Interval development of moderate left hydronephrosis with near complete resolution of right hydronephrosis since ultrasound of February 16, 2019. This finding could be due to mass effect from the gravid uterus or an occult ureteral calculus. 2. Bilateral nephrolithiasis. Electronically signed by: Raudel Callejas M.D. 02/22/2019 7:35 PM Blood Pressure Blood Pressure Findings: Normal blood pressure Blood Pressure Disposition: further management by hospitalist OLIVER Narrative The patient is a 38-year-old female who has a long history of kidney stones but currently is also 31 weeks . She presented to the emergency department for flank pain. She was recently seen in our facility with similar complaints. At that time she was able to be managed as an outpatient and followed up with [facility] the next day. The patient presents the emergency department today with worsening pain but now in the left flank. I discussed the patient's laboratory and radiographic studies with her. She was treated with IV fluids IV pain medication and IV antiemetics. She was also given IV antibiotics for presumed urinary tract infection noted on urinalysis. The patient still had significant pain. Her ultrasound appear to be consistent with an obstructing ureteral calculi. For this reason I discussed her case with her primary [facility] physician group. They were able to follow along his consultation but feel the patient may be better managed by the medical group with consultation to [facility] given her current condition does not appear to be consistent with a related issue. I discussed this case with the on-call [facility] hospitalist group. They have agreed to evaluate patient in the emergency department for further management disposition. The patient was reevaluated multiple times. On subsequent reevaluation she was somewhat improved but was agreeable to the plan. Impression & Plan Renal colic, Hydronephrosis, UTI (urinary tract infection) Discharge Plan Visit Data *Final* Discharge Date/Time: 02/22/19 22:48 Chief Complaint: Kidney Stone Stated Complaint: KIDNEY STONES, PASSED SEVERAL, 31 WEEKS PREG ED Provider: Shaka Landry Discharge Problem: Renal colic, Hydronephrosis, UTI (urinary tract infection) Patient Disposition: Admitted As Inpatient Discharge Instructions Interventions: ED Discharge Assessment Last Done: 02/22/19 22:48 Discharge Problem: Hydronephrosis Qualifiers: Hydronephrosis type: unspecified Qualified Code(s): N13.30 - Unspecified hydron ephrosis UTI (urinary tract infection) Qualifiers: Urinary tract infection type: site unspecified Hematuria presence: with hematuria Qualified Code(s): N39.0 - Urinary tract infection, site not specified The scribe's documentation has been prepared under my direction and personally reviewed by me in its entirety. I confirm that the note above accurately reflects all work, treatment, procedures, and medical decision making performed by me.
[2019-02-22] MEDS ORDERED: ACETAMINOPHEN 325 MG TAB PO PRN (23:31)
[2019-02-22] MEDS ORDERED: MoRPHine SULFATE 2 MG/ML CARP IV PRN (23:31)
[2019-02-23 00:01] LABS: Appearance Urine Clear (Clear); Bacteria Urine Automated 1+ (Negative); Bilirubin Urine Negative (Negative); Blood Urine 2+ (Negative); Color Urine Yellow; Epithelial Cell Urine Auto >30 /lpf (0-5); Glucose Urine UA Negative (Negative); Ketones Urine 1+ (Negative); Leukocyte Esterase Urine Negative (Negative); Nitrite Urine Negative (Negative); Protein Urine Negative (Negative); Specific Gravity Urine 1.024 (1.000-1.030); Urobilinogen Urine Negative (Negative); pH Urine 6.5 (4.5-7.5)
[2019-02-23] MEDS: SODIUM CHLORIDE 0.9% 1000ML 1,000 ML IV SCH ×4 (00:25→17:40)
[2019-02-23] MEDS: ACETAMINOPHEN 1,000 MG/100 ML VIAL IV SCH ×4 (00:25→22:36)
[2019-02-23] MEDS ORDERED: PROMETHAZINE HCL 12.5 MG/10 ML UDP PO PRN (00:48)
--- NOTE | 2019-02-23 01:09 | History & Physical Report ---
Date of Service February 23, 2019 Assessment & Plan (1) Renal colic: 38-year-old G7, P3 female, 31 weeks presents with presumed kidney stones. The patient began having the left flank and abdominal pain starting today around 15:00 p.m. She also complains of associated nausea and vomiting. Admitted for intractable pain and to see if the patient passes stone. Renal colic, left-sided hydronephrosis Urology consulted, appreciate recommendations Treating supportivelyIV fluids 125 cc/h, pain controlmorphine/Tylenol Treating nausea with Zofran 4 mg every 6, Reglan as needed UA was positive, but showed contamination. Will get cathed urine. Discussed with OB, they are not consulted, treatment per medicine, urology CODE STATUSfull Dietn.p.o. DVT prophylaxisSCDs, ambulate (2) : (3) Hydronephrosis: (4) Hydronephrosis: (5) UTI (urinary tract infection): (6) Ureterolithiasis: History of Present Illness Primary Care Provider: Pete Newberry MD 38-year-old G7, P3 female, 31 weeks presents with presumed kidney stones. The patient began having the left flank and abdominal pain starting today around 1500. She also complains of associated nausea and vomiting. She states that she was in the ED last Sunday with right-sided symptoms. She was discharged from the emergency room and subsequently passed 2 stones that evening. She has a past medical history significant for kidney stones and has seen Dr. Ramachandran in the past. She denies fevers, chills. She has had an epis ode of hematuria. She denies any dysuria. She is producing urine, but states reduced output. Patient reports movements, denies vaginal bleeding or discharge. Review of systems No fevers, chills, night sweats. Abdominal pain present left-sided, nausea and vomiting present. Denies chest pain, palpitations, shortness of breath. Allergies Allergy/AdvReac Type Severity Reaction Status Date / Time latex Allergy Mild redness/willy Verified 02/22/19 18:44 h Cipro Allergy Unknown RASH Verified 10/17/17 17:17 ciprofloxacin Allergy Unknown RASH Verified 02/22/19 18:44 Home Medications Home Medications Medication Instructions Recorded Confirmed Type prenat.vits,james,[id number] 1 tab PO DAILY 11/26/18 02/22/19 History acetaminophen [Tylenol Extra 500 mg PO DIRECTED PRN 02/16/19 02/22/19 History Strength] ondansetron 4 mg PO Q6H PRN 02/16/19 02/22/19 History oxycodone-acetaminophen 1 tab PO Q8H PRN 02/16/19 02/22/19 History Past Med/Surg History Medical History Right lower quadrant abdominal pain (Resolved) UTI (urinary tract infection) (Resolved) Fissure of female nipple History of kidney stones History of kidney stones History of nephrolithiasis History of ovarian cyst History of renal calculi History of spontaneous History of varicella Surgical History H/O cystoscopy (Resolved) H/O lithotripsy (Resolved) History of delivery (Resolved) History of lithotripsy S/P LEEP (loop electrosurgical excision procedure) S/P section S/P eye surgery Family History Father Hypertension Prostate cancer Grandmother (Maternal) Ovarian cancer Social History Preferred Language: Faroese Communication Ability: Effective Second Worker Required: No Beliefs That Will Affect Care: None marital status: Current Living Situation: Spouse and Family Feels Safe at Home: Yes Safety Concerns: Feels Safe At This Time Smoking Status: Former smoker Hx Alcohol Use: No Hx Substance Use: No Review of Systems Review of Systems: All systems reviewed & are unremarkable except as noted in HPI & below Physical Exam Constitutional: WD/WN, vitals as above Eyes: PERRL, conjunctivae normal, anicteric sclerae ENMT: external ear and nose normal, oropharynx normal Neck: trachea midline, no thyromegaly Respiratory: normal respiratory effort, lungs clear to auscultation Cardiovascular: RRR, no murmur, no edema Gastrointestinal (Abdomen): normal bowel sounds, soft, nontender, no hepatosplenomegaly Musculoskeletal: no cyanosis or clubbing, extremities motor strength 5/5 Skin: no rashes, warm and dry Neurologic: PERRL, EOMI, accommodation nl, no face palsy, no dysarthria Psychiatric: A+Ox3, euthymic affect Results & Data Vital Signs (Past 12 Hours) Vital Signs Temp Pulse Pulse Resp BP BP Pulse Ox 02/23/19 00:09 36.7 C 69 18 113/69 99 02/22/19 22:44 68 18 119/80 99 02/22/19 20:06 71 18 116/79 100 02/22/19 18:15 36.7 C 88 22 121/74 99 Code Status & VTE Plan Code Status Full code VTE Prophylaxis Plan VTE Prophylaxis will be ordered: Yes Supervising Physician Co-Signing Physician Notes Patient seen and examined, chart reviewed, case discussed with Dr. Snow and I agree with his assessment and plan as documented above. Briefly, patient is a 38yo C female at 31 weeks presenting with presumed renal stones, left flank and abdominal pain, nausea/vomiting. She passed two stones, has them in a bag in her purse. One seems to be quite large. Presently she is at 8/10 pain but says it is "tolerable". On exam she is afebrile, HD stable, NAD Skin - intact, no rash HEENT-NC/AT, PERRL, neck supple, no JVD Heart - +S1/S2, regular, no m/r/g Lungs - CTA Abd - +BS, soft, NT/ND Ext- No edema Labs and images reviewed. WBC=11.44, improved from 02/16, stable normochromic/normocytic anemia Renal US with moderate L hydronephrosis, improvement in right hydronephrosis when compared to US 02/16/19. Bilateral nephrolithiasis Assessment/plan: 38yo C female at 31 weeks, longstanding history of nephrolithiasis presenting with the same. -IVF, Pain and nausea control, urine straining -Ceftriaxone -Follow cultures -Hopefully patient will pass stones, conservative measures preferred to imaging and intervention given gravid state PG Care Time/CCT Total # of Minutes Spent Total Time Spent with Patient: Total time spent is greater than 50% in coordination of care (as documented) at patient's floor/unit and/or counseling patient: Resident Activity Tracking Resident Involvement: Resident Care Provided Care Provided: Adult Hospital Medicine (1) UTI (urinary tract infection) Hematuria presence: with hematuria Urinary tract infection type: site unspecified Qualified Code(s): N39.0 - Urinary tract infection, site not specified; R31.9 - Hematuria, unspecified (2) Hydronephrosis Hydronephrosis type: with renal calculous obstruction Qualified Code(s): N13.2 - Hydronephrosis with renal and ureteral calculous obstruction (3) Hydronephrosis Hydronephrosis type: unspecified Qualified Code(s): N13.30 - Unspecified hydronephrosis (4) Weeks of gestation: 30 weeks Qualified Code(s): Z3A.30 - 30 weeks gestation of
[2019-02-23] MEDS ORDERED: PROMETHAZINE HCL 25 MG TAB PO PRN (01:16)
--- NOTE | 2019-02-23 01:52 | Urology Consultation ---
Date of Consultation February 23, 2019 Assessment & Plan (1) Renal colic: A/P 38-year-old female with suspected left renal colic and stone passage, resolved right ureteral stones after spontaneous passage. Findings reviewed with the patient and partner were well versed in the manage ment of her condition. Obviously the complicating factor is her which increases the risk of more definitive imaging studies such as CT scan or any form of ionizing radiation as well as increasing the risk of intervention which in her case would be endoscopic. Seen the patient's improvement in symptoms, gravid condition and strong history of stone passage she has a strong preference for conservative management which is reasonable. Would attempt at least 1 to 2 days of hydration and pain control prior to consideration of escalation to CT scan imaging with consideration of ureteroscopy. Of course should the patient develop any absolute and urgent indications for intervention this might be considered sooner. However overall the patient seems to be clinically improved per her report from the time of admission. Will write for a regular diet later on this morning and depending on progress can consider making the patient n.p.o. at midnight again if conservative management seems to be failing. Patient vocalizes good understanding of the treatment plan and agrees. Thank you for allowing us to participate in this patient's acute care. Please contact our service with any questions or concerns. (2) Hydronephrosis: History of Present Illness Reason for Consultation: History of stones during . Attending Physician: Reina Garcia DO History of Present Illness 38-year-old female, known to our service who was admitted due to left-sided flank pain associated with hydronephrosis on renal ultrasound. Patient is presumed to be passing stones on the side and has a long-standing history of stone passage, recurrent stone formation and stones during . Up until a few days ago patient was suffering from colic on the right-hand side associated with hydronephrosis on the right on renal ultrasound. In her handbag she has 2 relatively large stones, the largest approaching 7 to 8 mm which she passed prior to the initiation of pain on the left-hand side. She reports that during and after she is able to pass relatively large stones. Between pregnancies she is undergone unsuccessful lithotripsy procedures and extended ureteroscopies with management of numerous stones and well-tolerated stents. She is currently resting comfortably and reports that her pain has decreased to approximately a 5/10, which she considers acceptable. She has passed no stones. Urology consultation is sought out to assist with her acute care. Allergies Allergy/AdvReac Type Severity Reaction Status Date / Time latex Allergy Mild redness/willy Verified 02/22/19 18:44 h Cipro Allergy Unknown RASH Verified 10/17/17 17:17 ciprofloxacin Allergy Unknown RASH Verified 02/22/19 18:44 Home Medications Home Medications Medication Instructions Recorded Confirmed Type prenat.vits,james,[id number] 1 tab PO DAILY 11/26/18 02/22/19 History acetaminophen [Tylenol Extra 500 mg PO DIRECTED PRN 02/16/19 02/22/19 History Strength] ondansetron 4 mg PO Q6H PRN 02/16/19 02/22/19 History oxycodone-acetaminophen 1 tab PO Q8H PRN 02/16/19 02/22/19 History Patient History Medical History Right lower quadrant abdominal pain (Resolved) UTI (urinary tract infection) (Resolved) Fissure of female nipple History of kidney stones History of kidney stones History of nephrolithiasis History of ovarian cyst History of renal calculi History of spontaneous History of varicella Surgical History H/O cystoscopy (Resolved) H/O lithotripsy (Resolved) History of delivery (Resolved) History of lithotripsy S/P LEEP (loop electrosurgical excision procedure) S/P section S/P eye surgery Family History Father Hypertension Prostate cancer Grandmother (Maternal) Ovarian cancer Social History Preferred Language: Indonesian Communication Ability: Effective Book Repairer Required: No Beliefs That Will Affect Care: None marital status: Current Living Situation: Spouse and Family Feels Safe at Home: Yes Safety Concerns: Feels Safe At This Time Smoking Status: Former smoker Hx Alcohol Use: No Hx Substance Use: No Review of Systems Constitutional: no fever and no chills Eyes: no diplopia Ear, Nose, Mouth, Throat: no ear trauma Respiratory: no hemoptysis Cardiovascular: no chest pain Gastrointestinal: + abdominal pain and + bloating Genitourinary: + flank pain Musculoskeletal: + back pain Integumentary: no acne and no boil Neurologic: no paralysis Psychiatric: no hopelessness Hematologic / Lymphatic: no easy bleeding and no lymphadenopathy Allergy / Immunological: no tongue swelling Physical Exam Constitutional: well developed and well nourished; no acute distress Eyes: eyes not dysmorphic ENMT: Ears: no external ear abnormality Neck: trachea midline; no anterior neck swelling Respiratory: no respiratory distress and does not use accessory muscles Cardiovascular: Vessels: radial pulses present Gastrointestinal (Abdomen): Percussion/Palpation: abdomen soft; abdomen nontender Gravid uterus Musculoskeletal: Head/Neck/Chest: normocephalic and neck supple Skin: normal turgor Neurologic: awake; not obtunded Psychiatric: Orientation: oriented x 3 Lymphatic: no lymphadenopathy Results & Data Vital Signs (Past 12 Hours) Vital Signs Temp Pulse Pulse Resp BP BP Pulse Ox 02/23/19 00:09 36.7 C 69 18 113/69 99 02/22/19 22:44 68 18 119/80 99 02/22/19 20:06 71 18 116/79 100 02/22/19 18:15 36.7 C 88 22 121/74 99 Laboratory Results Laboratory Results - last 48 hr 02/22/19 02/22/19 02/22/19 18:23 18:46 18:46 WBC 11.44 H RBC 3.55 L Hgb 10.8 L Hct 31.6 L MCV 89.0 MCH 30.4 MCHC 34.2 RDW Std Deviation 45.1 RDW Coeff of Kapil 13.7 Plt Count 218 MPV 9.4 Immature Gran % (Auto) 0.4 Neut % (Auto) 81.7 Lymph % (Auto) 13.1 Bland % (Auto) 4.3 Eos % (Auto) 0.4 Baso % (Auto) 0.1 Immature Gran # (Auto) 0.05 H Neut # (Auto) 9.34 H Lymph # (Auto) 1.50 Bland # (Auto) 0.49 Eos # (Auto) 0.05 Baso # (Auto) 0.01 Sodium 138 Potassium 3.9 Chloride 108 H Carbon Dioxide 23 Anion Gap 7.0 BUN 13 Creatinine 0.77 Est Cr Clr Drug Dosing 90.9 Est GFR ( Amer) 115.1 Est GFR (Non-Af Amer) 99.3 BUN/Creatinine Ratio 16.4 Glucose 100 H Calcium 8.7 Total Bilirubin 0.2 AST 11 L ALT 16 Alkaline Phosphatase 106 Total Protein 6.3 L Albumin 2.8 L Globulin 3.5 Albumin/Globulin Ratio 0.8 L Lipase 118 Specimen Hemolysis Urine Color Yellow Urine Appearance Cloudy A Urine pH 6.5 Ur Specific [place] 1.023 Urine Protein 1+ H Urine Glucose (UA) Negative Urine Ketones Negative Urine Blood 3+ H Urine Nitrite Negative Urine Bilirubin Negative Urine Urobilinogen Negative Ur Leukocyte Esterase Trace H Urine WBC (Auto) 10-30 H Urine RBC (Auto) >30 H U Hyaline Cast (Auto) 10-30 H U Epithel Cells (Auto) >30 H Urine Bacteria (Auto) 2+ H Ur Renal Epithelial Cell 0-5 Calcium Oxalate Crystal Present A 02/22/19 22:51 WBC RBC Hgb Hct MCV MCH MCHC RDW Std Deviation RDW Coeff of Kapil Plt Count MPV Immature Gran % (Auto) Neut % (Auto) Lymph % (Auto) Bland % (Auto) Eos % (Auto) Baso % (Auto) Immature Gran # (Auto) Neut # (Auto) Lymph # (Auto) Bland # (Auto) Eos # (Auto) Baso # (Auto) Sodium Potassium Chloride Carbon Dioxide Anion Gap BUN Creatinine Est Cr Clr Drug Dosing Est GFR ( Amer) Est GFR (Non-Af Amer) BUN/Creatinine Ratio Glucose Calcium Total Bilirubin AST ALT Alkaline Phosphatase Total Protein Albumin Globulin Albumin/Globulin Ratio Lipase Specimen Hemolysis Urine Color Yellow Urine Appearance Clear Urine pH 6.5 Ur Specific [place] 1.024 Urine Protein Negative Urine Glucose (UA) Negative Urine Ketones 1+ H Urine Blood 2+ H Urine Nitrite Negative Urine Bilirubin Negative Urine Urobilinogen Negative Ur Leukocyte Esterase Negative Urine WBC (Auto) 1-5 Urine RBC (Auto) 5-10 H U Hyaline Cast (Auto) 1-5 U Epithel Cells (Auto) >30 H Urine Bacteria (Auto) 1+ H Ur Renal Epithelial Cell Calcium Oxalate Crystal PG Care Time/CCT Total # of Minutes Spent Total Time Spent with Patient: Total time spent is greater than 50% in coordination of care (as documented) at patient's floor/unit and/or counseling patient: (1) Hydronephrosis Hydronephrosis type: with renal calculous obstruction Qualified Code(s): N13.2 - Hydronephrosis with renal and ureteral calculous obstruction
[2019-02-23] MEDS ORDERED: MoRPHine SULFATE 2 MG/ML CARP IV STA ×2 (03:28→09:34)
[2019-02-23] MEDS ORDERED: MoRPHine SULFATE 4 MG/ML 1 ML CARP\\VIAL IV STA (04:26)
[2019-02-23 05:13] LABS: Basophils # (auto) 0.01 K/uL (0-0.2); Basophils % (auto) 0.1 %; Eosinophils # (auto) 0.02 K/uL (0-0.5); Eosinophils % (auto) 0.2 %; Hematocrit (blood only) 26.6 % (37-47); Hemoglobin 9.5 g/dL (12.0-16.0); Immature Granulocytes # (auto) 0.03 K/uL (0.00-0.02); Immature Granulocytes % (auto) 0.3 %; Lymphocytes # (auto) 1.45 K/uL (1.2-3.4); Lymphocytes % (auto) 12.1 %; Mean Corpuscular Hemoglobin 31.3 pg (25-34); Mean Corpuscular Hgb Conc 35.7 g/dL (32-36); Mean Corpuscular Volume 87.5 fL (80-100); Mean Platelet Volume 8.7 fL (7.4-10.4); Monocytes # (auto) 0.72 K/uL (0.11-0.59); Neutrophils # (auto) 9.71 K/uL (1.4-6.5); Neutrophils % (auto) 81.3 %; Platelet Count 169 K/uL (130-400); RDW Coefficient of Variation 13.5 % (11.5-14.5); RDW Standard Deviation 43.9 fL (36.4-46.3); Red Blood Count 3.04 M/uL (4.2-5.4); White Blood Count 11.94 K/uL (4.8-10.8)
[2019-02-23 05:46] LABS: BUN Creatinine Ratio 11.2 (10-20); Creatinine Clr Calc Pharmacy 70.7 ml/min; Est GFR (Non-African American) 73.3; Potassium 3.5 mmol/L (3.5-5.1)
[2019-02-23] MEDS ORDERED: METOCLOPRAMIDE HCL 10 MG TABLET PO SCH (06:00)
[2019-02-23] MEDS: ONDANSETRON INJ 2 MG/ML 2 ML VIAL IV PRN ×2 (08:37→16:39)
[2019-02-23] MEDS: MoRPHine SULFATE 4 MG/ML 1 ML CARP\\VIAL IV PRN ×3 (08:37→15:15)
[2019-02-23] MEDS: PRENATAL VITAMIN 1 TAB PO SCH (09:32)
--- NOTE | 2019-02-23 13:26 | Family Medicine Progress Note ---
Date of Service February 23, 2019 Assessment & Plan (1) Renal colic: Patient is a 38F at 31 weeks who presents initially with complaint of L flank pain that does not improve with OTC analgesics. Renal Colic -Significant L sided back and flank pain with minimal control on 4mg morphine Q3H and IV Tylenol 1000mg Q8H -Urology Consulted and following, appreciate recs -Initially recommend trial with pain control and fluid hydration in hopes patient can pass stone on own. -Due to uncontrolled and significant pain, low-dose abdomen/pelv CT was ordered for more accurate diagnosis of pts renal stones -May require endoscopic management with ureteroscopy and short-term stent placement. 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 -Continue IV Fluids -Urine Culture pending Hydronephrosis -Bilateral hydronephrosis, L>R, noted on Renal Ultrasound -Secondary to renal stone -Plan as above. Nausea -Zofran 4mg IV Q6h PRN -Promethazine 12.5mg Q6H PRN -Patient at 31 weeks of current intrauterine -There was concern earlier in the day that patient was noting what she considered "labor pains." -OBGYN was consulted and after discussion pt was transferred to L&D for short term monitoring. -Patient transferred back to Med/Surg after premature labor was ruled out. -OBGYN will continue to follow at this time. FEN/GI - NPO after midnight, NSS 125ml/hr, Dilauded SALES REPRESENTATIVE [employer] DVT - SCD's Code - Full Dispo - Med/Surg (2) Hydronephrosis: (3) : (4) Nausea: Supervising Physician Co-Signing Physician Notes Resident Physician Supervision Note: I independently interviewed and examined the patient and verified the calixto history and physical, reviewed labs and image studies, discussed the case with the resident Dr. Thomas and agree with the findings and care plan. Subjective Patient is a pleasant 38 at 31 weeks who presented with L flank pain overnight. She states that she has had a significant history of kidney stones, and notes that she was here earlier in the week for R sided stones. She did pr oduce a small zip lock bag with the stones that she had passed. She notes that currently she is starting to feel a greater onset of pain on her L flank rating a 7/10 dull, but throbbing pain. She notes that she currently can still feel baby moving around. Review of Systems Constitutional: no fever and no chills Respiratory: no cough and no pain on inspiration Cardiovascular: no chest pain, no dyspnea and no palpitations Gastrointestinal: + abdominal pain (Flank pain L ) and + nausea; no vomiting, no dysphagia, no constipation and no diarrhea/loose stools Genitourinary: no dysuria and no hematuria Musculoskeletal: + back pain Physical Exam Constitutional: well developed, well nourished, + well hydrated and + in distress Eyes: PERRL, conjunctivae normal, anicteric sclerae normal visual brand by confrontation ENMT: external ear and nose normal, oropharynx normal Neck: trachea midline, no thyromegaly Respiratory: normal respiratory effort, lungs clear to auscultation Cardiovascular: RRR, no murmur, no edema Gastrointestinal (Abdomen): Inspection/Auscultation: abdomen normal to inspection, + abdomen distended (31 week intrauterine ) and normal bowel sounds Percussion/Palpation: abdomen soft Musculoskeletal: no cyanosis or clubbing, extremities motor strength 5/5 Skin: no rashes, warm and dry Neurologic: PERRL, EOMI, accommodation nl, no face palsy, no dysarthria Psychiatric: Orientation: alert and oriented x 3 Affect: + anxious affect Genitourinary: + CVA tenderness (L ) Results & Data Vital Signs (Past 12 Hours) Vital Signs Temp Pulse Resp BP Pulse Ox 02/23/19 07:35 36.8 C 59 L 14 96/58 L 99 Laboratory Results Abnormal lab results 02/22/19 02/22/19 02/22/19 Range/Units 18:23 18:46 18:46 WBC 11.44 H (4.8-10.8) K/uL RBC 3.55 L (4.2-5.4) M/uL Hgb 10.8 L (12.0-16.0) g/dL Hct 31.6 L (37-47) % Immature Gran # (Auto) 0.05 H (0.00-0.02) K/uL Neut # (Auto) 9.34 H (1.4-6.5) K/uL [place] # (Auto) (0.11-0.59) K/uL Chloride 108 H (98-107) mmol/L Glucose 100 H (70-99) mg/dl Calcium (8.5-10.1) mg/dl AST 11 L (15-37) U/L Total Protein 6.3 L (6.4-8.2) gm/dl Albumin 2.8 L (3.4-5.0) gm/dl Albumin/Globulin Ratio 0.8 L (0.9-2) Urine Appearance Cloudy A (Clear) Urine Protein 1+ H (Negative) Urine Ketones (Negative) Urine Blood 3+ H (Negative) Ur Leukocyte Esterase Trace H (Negative) Urine WBC (Auto) 10-30 H (0-5) /hpf Urine RBC (Auto) >30 H (0-4) /hpf U Hyaline Cast (Auto) 10-30 H (0-5) /lpf U Epithel Cells (Auto) >30 H (0-5) /lpf Urine Bacteria (Auto) 2+ H (Negative) Calcium Oxalate Crystal Present A (None Prsent) 02/22/19 02/23/19 02/23/19 Range/Units 22:51 04:51 04:51 WBC 11.94 H (4.8-10.8) K/uL RBC 3.04 L (4.2-5.4) M/uL Hgb 9.5 L (12.0-16.0) g/dL Hct 26.6 L (37-47) % Immature Gran # (Auto) 0.03 H (0.00-0.02) K/uL Neut # (Auto) 9.71 H (1.4-6.5) K/uL [place] # (Auto) 0.72 H (0.11-0.59) K/uL Chloride 109 H (98-107) mmol/L Glucose (70-99) mg/dl Calcium 8.0 L (8.5-10.1) mg/dl AST (15-37) U/L Total Protein (6.4-8.2) gm/dl Albumin (3.4-5.0) gm/dl Albumin/Globulin Ratio (0.9-2) Urine Appearance (Clear) Urine Protein (Negative) Urine Ketones 1+ H (Negative) Urine Blood 2+ H (Negative) Ur Leukocyte Esterase (Negative) Urine WBC (Auto) (0-5) /hpf Urine RBC (Auto) 5-10 H (0-4) /hpf U Hyaline Cast (Auto) (0-5) /lpf U Epithel Cells (Auto) >30 H (0-5) /lpf Urine Bacteria (Auto) 1+ H (Negative) Calcium Oxalate Crystal (None Prsent) Medications Administered Current Inpatient Medications Docusate Sodium (Colace) 100 mg PO BID SRINIVAS Stop: 03/09/19 20:59 Hydromorphone HCl () 30 mg IV PRN PRN; Protocol PRN Reason: SALES REPRESENTATIVE [employer] Pain Titration Stop: 03/09/19 15:58 Last Admin: 02/23/19 17:29 Dose: 30 mg Documented by: Sodium Chloride (Nss 1000ml) 1,000 mls @ 125 mls/hr IV .Q8H SRINIVAS Stop: 03/24/19 23:30 Last Admin: 02/23/19 16:38 Dose: 125 mls/hr Documented by: Acetaminophen (Ofirmev) 1,000 mg in 100 mls @ 400 mls/hr IV Q8 SRINIVAS Stop: 03/25/19 13:59 Last Infusion: 02/23/19 13:32 Dose: Infused Documented by: Sodium Chloride (Nss 1000ml) 1,000 mls @ 15 mls/hr IV .Q24H SRINIVAS Stop: 03/09/19 15:59 Last Admin: 02/23/19 17:40 Dose: Not Given Documented by: Morphine Sulfate (Morphine Sulfate) 4 mg IV Q3H PRN PRN Reason: Pain Stop: 03/08/19 23:30 Last Admin: 02/23/19 15:15 Dose: 4 mg Documented by: Naloxone HCl (Narcan) 0.1 mg IV Q5M PRN; Protocol PRN Reason: Oversedation/Resp Depression Stop: 03/09/19 15:58 Ondansetron HCl (Zofran) 4 mg IV Q6H PRN PRN Reason: Nausea Stop: 03/24/19 23:30 Last Admin: 02/23/19 16:39 Dose: 4 mg Documented by: Prenat Multivit/[place]/Iron/Folic Ac ( Vitamin) 1 tab PO DAILY SRINIVAS Stop: 03/25/19 08:59 Last Admin: 02/23/19 09:32 Dose: Not Given Documented by: Promethazine HCl (Phenergan) 12.5 mg PO Q6H PRN PRN Reason: Nausea And Vomiting Stop: 03/25/19 01:15 Last Admin: 02/23/19 01:42 Dose: 12.5 mg Documented by: PG Care Time/CCT Total # of Minutes Spent Total Time Spent with Patient: Total time spent is greater than 50% in coordination of care (as documented) at patient's floor/unit and/or counseling patient: (1) Hydronephrosis Hydronephrosis type: unspecified Qualified Code(s): N13.30 - Unspecified hydronephrosis (2) Weeks of gestation: 30 weeks Qualified Code(s): Z3A.30 - 30 weeks gestation of
--- NOTE | 2019-02-23 15:46 | OB/GYN Consultation ---
Date of Consultation February 23, 2019 assessed for possible contractions as current admission is for kideny stones/pain. Pain is more flanl in nature. No bleeding. No LOF Assessment & Plan (1) Renal colic: No signifcant contraction pattern on monitor NST reactive FFN negative Spoke with team, plan transfer back to floor History of Present Illness Attending Physician: Azalia Farfan MD, FACOG Allergies Allergy/AdvReac Type Severity Reaction Status Date / Time latex Allergy Mild redness/willy Verified 02/22/19 18:44 h Cipro Allergy Unknown RASH Verified 10/17/17 17:17 ciprofloxacin Allergy Unknown RASH Verified 02/22/19 18:44 Home Medications Home Medications Medication Instructions Recorded Confirmed Type prenat.vits,james,yxu-zwng-mflzu 1 tab PO DAILY 11/26/18 02/22/19 History acetaminophen [Tylenol Extra 500 mg PO DIRECTED PRN 02/16/19 02/22/19 History Strength] ondansetron 4 mg PO Q6H PRN 02/16/19 02/22/19 History oxycodone-acetaminophen 1 tab PO Q8H PRN 02/16/19 02/22/19 History Patient History Medical History Right lower quadrant abdominal pain (Resolved) UTI (urinary tract infection) (Resolved) Fissure of female nipple History of kidney stones History of kidney stones History of nephrolithiasis History of ovarian cyst History of renal calculi History of spontaneous History of varicella Surgical History H/O cystoscopy (Resolved) H/O lithotripsy (Resolved) History of delivery (Resolved) History of lithotripsy S/P LEEP (loop electrosurgical excision procedure) S/P section S/P eye surgery Family History Father Hypertension Prostate cancer Grandmother (Maternal) Ovarian cancer Social History Preferred Language: Irish Communication Ability: Effective Edger Tailer Required: No Beliefs That Will Affect Care: None marital status: Current Living Situation: Spouse and Family Feels Safe at Home: Yes Safety Concerns: Feels Safe At This Time Smoking Status: Former smoker Tobacco Type: cigarettes ; Smoking End Date: 08/28/2018 ; Hx Alcohol Use: No Hx Substance Use: No Results & Data Vital Signs (Past 12 Hours) Vital Signs Temp Pulse Resp BP Pulse Ox 02/23/19 14:08 98.1 F 20 02/23/19 07:35 98.2 F 59 L 14 96/58 L 99 PG Care Time/CCT Total # of Minutes Spent Total Time Spent with Patient: Total time spent is greater than 50% in coordination of care (as documented) at patient's floor/unit and/or counseling patient:
[2019-02-23] MEDS ORDERED: HYDROmorphone HCL 0.5MG/ML 50 ML CASSETTE IV PRN (15:59)
[2019-02-23] MEDS ORDERED: HYDROmorphone PCA 30 MG/30 ML IV PRN (15:59)
[2019-02-23] MEDS ORDERED: NALOXONE HCL 0.4 MG/1 ML VIAL/CARP IV PRN (15:59)
--- NOTE | 2019-02-23 16:04 | Progress Note ---
Date of Service February 23, 2019 Subjective Patient seen in afternoon rounds: Since seen early this morning patient reports worsening pain control. She reports temporary, short-term relief from Tylenol intravenously and no effect from morphine. Her pain increased sufficiently that the patient was transferred to labor and delivery for evaluation for possible labor but so far this seems to not be the case. It is suspected that her pain is simply poorly controlled colic. She reports that her pain has not progressed and remains in the left flank radiating to the left inguinal area. Her ultrasound images from yesterday were previously reviewed. Findings are reviewed with the patient. Seen her ongoing uncontrolled symptomatology we will proceed with a low-dose protocol CT scan for more accurate definition of the number, size and location of her stones. If her symptoms remain uncontrolled intervention in some form will likely be needed. A percutaneous nephrostomy tube on the left-hand side can be considered but this would require ongoing changes for the remainder of the . A lternatively, endoscopic management with ureteroscopy and short-term stent placement could be considered depending on the location of her stones. Patient is currently n.p.o. but can have a p.m. diet from a urologic perspective. Will place n.p.o. after midnight for reevaluation in the morning. In the meanwhile, we will attempt provision of a low-dose Dilaudid UPHOLSTERY AUTO TRIMMER as the patient has had relief from this medication in the past. As noted to the patient, who expresses a desire to avoid narcotic exposure to her fetus, this still represents a potent narcotic medication. Patient vocalizes good understanding of the treatment plan. Results & Data Vital Signs (Past 12 Hours) Vital Signs Temp Pulse Resp BP Pulse Ox 02/23/19 14:08 36.7 C 20 02/23/19 07:35 36.8 C 59 L 14 96/58 L 99 PG Care Time/CCT Total # of Minutes Spent Total Time Spent with Patient: Total time spent is greater than 50% in coordination of care (as documented) at patient's floor/unit and/or counseling patient:
--- NOTE | 2019-02-23 17:24 | CT Scan Report ---
CT abd pelvis wo con CT DOSE: 354.07 mGy.cm HISTORY: Pain with hydro and stones, low dose protocol TECHNIQUE: Multiaxial CT images of the abdomen and pelvis were performed without contrast. A dose lo wering technique was utilized adhering to the principles of ALARA. COMPARISON STUDY: 10/18/2017 FINDINGS: Lung bases are clear. Liver spleen and pancreas are grossly unremarkable. There are bilateral findings of nephrocalcinosis. There is moderate left renal hydronephrosis and hyd roureter. There is an intrauterine gestation. Bowel pattern is nonobstructive. Course of the ureters extremely difficult to evaluate. There are soft tissue calcifications left lateral aspect of the pelvis most li jana ovarian and/or vascular. IMPRESSION: 1. Mild to moderate left hydronephrosis and hydroureter. 2. This statistically is related to the mass effect of the intrauterine . 3. Nonobstructing right and to a lesser extent left nephrocalcinosis. 4. Bowel pattern is nonobstructive. The above report was generated using voice recognition software. It may contain grammatical, syntax or spelling errors. Electronically signed by: Oziel Nava M.D. 02/23/2019 5:23 PM
--- NOTE | 2019-02-23 17:55 | Gynecologic Progress Note ---
Date of Service assessed Patient and discussed her situation her pain is continuing to be an issue her pain management is been switched recently from morphine to a Dilaudid BREAD JOCKEY. She finds the morphine worsens her nausea and wishes to avoid it. Patient is asking about nonsteroidal anti-inflammatories and of course I recommended against these due to the state of her she is not having any vaginal bleeding the pain is all left-sided she has no right-sided pain she has no pain on her abdomen she does not have bleeding or leakage of fluid she states her fetus is active February 23, 2019 Assessment & Plan (1) Renal colic: Discussed with patient the current situation we need to improve pain management. If pain management fails to resolve her situation I discussed with Dr. Dee on the phone of possible urological and interventions clearly that will be up to the urology team. I answered the patient's questions about specifically discussing why nonsteroidal anti-inflammatories are not appropriate in answer questions and patient is reassured as I discus sed her CT scan findings as well which do show dilatation of the left kidney and ureter likely related to possible stone or also uterine compression. Physical Exam Constitutional: WD/WN, vitals as above Respiratory: normal respiratory effort, lungs clear to auscultation Cardiovascular: RRR, no murmur, no edema Genitourinary: Manual OB Exam: + cervical dilation (closed) and + cervical effacement (0) Results & Data Vital Signs (Past 12 Hours) Vital Signs Temp Pulse Resp BP Pulse Ox 02/23/19 17:11 97.7 F 90 17 112/74 100 02/23/19 14:08 98.1 F 71 20 116/59 L 02/23/19 07:35 98.2 F 59 L 14 96/58 L 99 PG Care Time/CCT Total # of Minutes Spent Total Time Spent with Patient: Total time spent is greater than 50% in coordination of care (as documented) at patient's floor/unit and/or counseling patient:
[2019-02-23] MEDS: DOCUSATE SODIUM 100 MG CAP PO SCH (20:17)
[2019-02-24] MEDS: SODIUM CHLORIDE 0.9% 1000ML 1,000 ML IV SCH ×5 (00:11→21:47)
[2019-02-24] MEDS: ONDANSETRON INJ 2 MG/ML 2 ML VIAL IV PRN (00:11)
[2019-02-24] MEDS: ACETAMINOPHEN 1,000 MG/100 ML VIAL IV SCH ×3 (05:11→21:50)
--- NOTE | 2019-02-24 06:49 | Gynecologic Progress Note ---
Date of Service Patient is significantly better today pain is 0 out of 10 she says fetus is active no bleeding states the nurses recently had a heart rate check and that was normal no leakage of fluid February 24, 2019 Assessment & Plan (1) Renal colic: Patient is significantly improved with regard to her pain. She is on a LONG TERM CARE ADMINISTRATOR however will leave decision making on the kidney stone obviously up to the urology team happy to follow along for the care as well Physical Exam Constitutional: WD/WN, vitals as above Results & Data Vital Signs (Past 12 Hours) Vital Signs Temp Pulse Resp BP Pulse Ox 02/24/19 05:10 16 02/24/19 03:10 98.2 F 87 16 107/67 98 02/24/19 00:20 98.6 F 85 16 101/61 96 02/23/19 20:33 98.2 F 86 16 102/59 L 100 02/23/19 19:35 99.1 F 89 16 114/68 99 02/23/19 18:40 98.2 F 85 16 96/60 L 97 PG Care Time/CCT Total # of Minutes Spent Total Time Spent with Patient: Total time spent is greater than 50% in coordination of care (as documented) at patient's floor/unit and/or counseling patient:
--- NOTE | 2019-02-24 07:28 | Family Medicine Progress Note ---
Date of Service February 24, 2019 Assessment & Plan (1) Renal colic: Patient is a 38F at 31 weeks who presents initially with complaint of L flank pain that does not improve with OTC analgesics. Renal Colic -Patient noted many stone fragments in urine strainer this morning. -Significant L sided back and flank pain with minimal control on 4mg morphine Q3H and IV Tylenol 1000mg Q8H initially. -Patient notes no pain with Dilaudid GOLF CART REPAIRER. -Discussed with patient today about transition to PO analgesics with Oxycodone 5mg Q4H and Tylenol 650mg and only using the Dilaudid GOLF CART REPAIRER only after 45 minutes of no pain relief - Patient noted understanding. -Urology Consulted and following, appreciate recs -Initially recommend trial with pain control and fluid hydration in hopes patient can pass stone on own. -Due to uncontrolled and significant pain, low-dose abdomen/pelv CT was ordered for more accurate diagnosis of pts renal stones - not accurately visualized on CT -No surgical management at this time. -Pt set up with Urology outpatient. -Continue IV Fluids -Urine Culture negative. Hydronephrosis -Bilateral hydronephrosis, L>R, noted on Renal Ultrasound -Secondary to renal stone -Plan as above. Nausea -Zofran 4mg IV Q6h PRN -Promethazine 12.5mg Q6H PRN -Patient at 31 weeks of current intrauterine . -Concern was had initially that patient was in labor based on the description of her pain, ruled out by OBGYN and returned to Med/Surg. -OBGYN continuing to follow. FEN/GI - Normal diet, NSS 125ml/hr, Dilaudid GOLF CART REPAIRER DVT - SCD's Code - Full Dispo - Med/Surg (2) Hydronephrosis: (3) : (4) Nausea: Supervising Physician Co-Signing Physician Notes I personally examined the patient and verified all calixto points of history and exam, discussed case, and agree with decision making with Dr Thomas. Feeling considerably better. Pain much improved. She is not sure that she passed the stones yet, but she does not feel like there still stuck in her ureter. Otherwise doing better, hungry, wants to eat. Extensive discussion on plan for pain control, she expresses good understanding. Vitals noted, in general she is awake and alert pleasant no distress. HEENT normocephalic atraumatic mucous members moist. Breathing unlabored no accessory muscle use good effort. Skin shows no rashes no pallor or icterus. Neuro shows no focal deficits. Ureterolithiasis/intractable renal colicappears to be improving. Will give trial to oral pain medicationoral Tylenol and oral oxycodonewith hopes of being able to replace the IV Dilaudid. For now reserve Dilaudid as needed severe breakthrough pain. As long as her pain continues to improve, hopefully home tomorrow. Otherwise as above. Subjective Patient seen this AM. Noted that her pain was significantly improved while on the Dilaudid GOLF CART REPAIRER and that she had actually passed several stone fragments in her urine strainer this morning. She hopes that after proper and complete pain management she can leave sooner than later. Review of Systems Constitutional: + body aches; no fever and no chills Eyes: no eye pain Ear, Nose, Mouth, Throat: no ear pain, no tinnitus and no dizziness Respiratory: no cough, no dyspnea and no pain on inspiration Cardiovascular: no chest pain, no dyspnea, no dyspnea on exertion and no palpitations Gastrointestinal: + nausea; no abdominal pain, no vomiting, no constipation and no diarrhea/loose stools Genitourinary: + urinary frequency and + flank pain (minimal with Dilaudid GOLF CART REPAIRER); no hematuria Several stone fragment passage Musculoskeletal: no back pain, no stiffness, no myalgia and no muscle weakness Integumentary: no rash Neurologic: no falls, no dizziness and no headache(s) Physical Exam Constitutional: well developed, well nourished and + well hydrated; not in distress Eyes: PERRL, conjunctivae normal, anicteric sclerae normal visual brand by confrontation ENMT: external ear and nose normal, oropharynx normal Neck: trachea midline, no thyromegaly Respiratory: normal respiratory effort, lungs clear to auscultation Cardiovascular: RRR, no murmur, no edema Gastrointestinal (Abdomen): Inspection/Auscultation: abdomen normal to inspection, + abdomen distended (31 week intrauterine ) and normal bowel sounds Percussion/Palpation: abdomen soft Musculoskeletal: no cyanosis or clubbing, extremities motor strength 5/5 Skin: no rashes, warm and dry Neurologic: PERRL, EOMI, accommodation nl, no face palsy, no dysarthria Psychiatric: Orientation: alert and oriented x 3 Genitourinary: + CVA tenderness (L ) Results & Data Vital Signs (Past 12 Hours) Vital Signs Temp Pulse Resp BP Pulse Ox 02/24/19 07:22 36.7 C 71 20 93/55 L 97 02/24/19 05:10 16 02/24/19 03:10 36.8 C 87 16 107/67 98 02/24/19 00:20 37 C 85 16 101/61 96 02/23/19 20:33 36.8 C 86 16 102/59 L 100 02/23/19 19:35 37.3 C 89 16 114/68 99 PG Care Time/CCT Total # of Minutes Spent Total Time Spent with Patient: Total time spent is greater than 50% in coordination of care (as documented) at patient's floor/unit and/or counseling patient: Resident Activity Tracking Resident Involvement: Resident Care Provided Care Provided: Adult Hospital Medicine (1) Hydronephrosis Hydronephrosis type: unspecified Qualified Code(s): N13.30 - Unspecified hydronephrosis (2) Weeks of gestation: 30 weeks Qualified Code(s): Z3A.30 - 30 weeks gestation of
[2019-02-24] MEDS: DOCUSATE SODIUM 100 MG CAP PO SCH ×2 (09:12→21:49)
[2019-02-24] MEDS: PRENATAL VITAMIN 1 TAB PO SCH (09:12)
--- NOTE | 2019-02-24 10:37 | Urology Progress Note ---
Date of Service February 24, 2019 Assessment & Plan (1) Renal colic: 38 YO female with bilateral nephrolithiasis, history of spontaneous stone passage, left renal colic. Several small stone fragments in urine strainer this AM. Reports feeling much better today. Still utilizing DIRECTOR OF CATEGORY MANAGEMENT but reports that she is needing it with less frequency. Okay to provide diet. No acute URO intervention today. Patient wishes to continue to avoid surgical intervention unless absolutely necessary. Please contact us with change in patient status. Will continue to intermittently follow. Outpatient URO follow up has been arranged. (2) : (3) Hydronephrosis: Subjective 38 YO female with bilateral nephrolithiasis, history of spontaneous stone passage, left renal colic. Patient had repeat CT scan yesterday due to worsening pain, which demonstrates bilateral nephrolithiasis and mild/moderate left hydronephrosis - due to vs. nonvisualized stone(s). Was placed on DIRECTOR OF CATEGORY MANAGEMENT which patient states is much better for pain control. This AM has caught numerous small calcifications c/w stone fragments in urine strainer. Reports feeling "much better." No fevers/chills. Voiding spontaneously. Review of Systems Review of Systems: Per HPI. Physical Exam Physical Exam: +Pregancy NAD. Resp effort normal +O2 via NC. No JVD. A&Ox3, appropriate affect. Results & Data Vital Signs (Past 12 Hours) Vital Signs Temp Pulse Resp BP Pulse Ox 02/24/19 07:22 36.7 C 71 20 93/55 L 97 02/24/19 05:10 16 02/24/19 03:10 36.8 C 87 16 107/67 98 02/24/19 00:20 37 C 85 16 101/61 96 PG Care Time/CCT Total # of Minutes Spent Total Time Spent with Patient: Total time spent is greater than 50% in coordination of care (as documented) at patient's floor/unit and/or counseling patient: (1) Hydronephrosis Hydronephrosis type: with renal calculous obstruction Qualified Code(s): N13.2 - Hydronephrosis with renal and ureteral calculous obstruction (2) Weeks of gestation: 30 weeks Qualified Code(s): Z3A.30 - 30 weeks gestation of
[2019-02-24] MEDS ORDERED: ACETAMINOPHEN 325 MG TAB PO PRN (13:24)
[2019-02-24] MEDS ORDERED: OXYCODONE/ACETAMINOPHEN 5mg/325mg TAB PO PRN (13:24)
[2019-02-24] MEDS ORDERED: FAMOTIDINE 20MG/5ML IV PUSH IV STA (20:37)
[2019-02-24] MEDS ORDERED: FAMOTIDINE 20 MG in SYRINGE 3 ML IV ONE (21:15)
[2019-02-25] MEDS: ACETAMINOPHEN 1,000 MG/100 ML VIAL IV SCH (05:28)
[2019-02-25] MEDS: SODIUM CHLORIDE 0.9% 1000ML 1,000 ML IV SCH ×4 (05:29→21:07)
[2019-02-25] MEDS: DOCUSATE SODIUM 100 MG CAP PO SCH ×3 (08:37→21:10)
[2019-02-25] MEDS: PRENATAL VITAMIN 1 TAB PO SCH (08:37)
--- NOTE | 2019-02-25 08:39 | Urology Progress Note ---
Date of Service February 25, 2019 Assessment & Plan (1) Renal colic: 38 YO female with bilateral nephrolithiasis, possible ureteral stone(s) vs. hydronephrosis of , renal colic. Ongoing colic this AM. Has not eaten yet today. NPO now - Dr. Ramachandran to reevaluate patient this afternoon for possible surgical intervention. (2) : Supervising Physician Co-Signing Physician Notes Lengthy discussion today with the patient and her I reviewed her CT from Sunday, although the initial interpretation did not report stones in the left ureter, I felt fairly strongly that this does show distal left ureteral calculi. I spoke to the radiologist mechatronics technologist who concurred with my opinion. I discussed this with Merna and her that I suspect she continues to have stones in the left distal ureter. She continues to have some pain although it is better over the past 24 hours. She has 2 stones with her, but she believes she passed the stones prior to her CT scan. She still has a CHAR FILTER TANK TENDER HEAD present but she is been using this with decreasing frequency. She is acutely aware of the risks of the surgical intervention given her 30-week . We have settled on the following plan Continued observation over the next 24 hours. If significant increase in pain or nausea, plan for surgical intervention. I have discussed the limits to our facility in terms of treating her here given the 30-week and potential need for NICU if there was distress or need for an emergent delivery. She is extremely understanding of those risks and she and her feel that the absolute best thing for her would be avoid transfer to another facility where she would not have supportive family and friends and would also be an unknown to the physicians in that location. If she requires surgery she prefers to have it done here. We will reassess in 24-hours to determine her status and continue to avoid surgery unless she has a decline in her function or increase in her pain/nausea. We additionally have discussed cysto and stent vs cysto/URS/LL and stent if she requires surgery. We will make a final determination if or when she requires surgery. Subjective 38 YO female with bilateral nephrolithiasis, possible ureteral stone, renal colic. Patient did have numerous stones in urine strainer yesterday. Was successfully weaning off of CHAR FILTER TANK TENDER HEAD last night with worsening pain again this AM. No fevers. Has not eaten since last night. Review of Systems Review of Systems: Per HPI. Physical Exam Physical Exam: +, NAD. Resp effort normal +supplemental O2 via NC. No JVD. A&Ox3, appropriate affect. Results & Data Vital Signs (Past 12 Hours) Vital Signs Temp Pulse Resp BP Pulse Ox 02/25/19 06:00 36.9 C 78 18 96/58 L 95 02/25/19 03:47 36.9 C 72 16 93/50 L 97 02/24/19 23:48 37.0 C 79 16 126/69 98 PG Care Time/CCT Total # of Minutes Spent Total Time Spent with Patient: Total time spent is greater than 50% in coordination of care (as documented) at patient's floor/unit and/or counseling patient: (1) Weeks of gestation: 30 weeks Qualified Code(s): Z3A.30 - 30 weeks gestation of
--- NOTE | 2019-02-25 11:04 | Communication Note ---
Date of Service: February 25, 2019 Dr. Ramachandran calls me this am about this patient. Reviewed the CT scan with the radiologist and notes she does indeed have some stones in her ureter. He feels she would benefit from surgery to remove. He thinks this will last about 30 min. Asked if he can do under spinal he notes he has never done it like that. Spoke with Dr. Lily Vela about this case. Wants continuous monitoring given baby is viable. She mentioned something about a policy of not doing nonurgent procedures on women less than 32 weeks. I am unaware of a formal polic y regarding this. Labor and delivery is very busy currently and we will be unable to provide cont monitoring until later in the afternoon at the earliest. I spoke with the patient regarding this situation. She has not yet spoken with Dr. Ramachandran directly, just his pa. She suspected they planned on something because they made her npo. Discussed that the probablility of something bad happening would be small. However, if the baby does poorly, may have to perform a stat at the time of the procedure if unable to recuscitate the baby. This would be a baby at 31 weeks that would certainly be transferred. Discussed the possibility of transfer of the patient now , prior to an intervention, to a tertiary care center to have the procedure performed there and in the event needed delivery, would be where NICU immediately available. She wants to talk to Dr. Ramachandran about his thoughts and plans first. He is currently doing a prostatectomy in the OR. Will continue to discuss with all involved.
--- NOTE | 2019-02-25 13:25 | Family Medicine Progress Note ---
Date of Service February 25, 2019 Assessment & Plan (1) Renal colic: Patient is a 38F at 31 weeks who presents initially with complaint of L flank pain that does not improve with OTC analgesics. Renal Colic -Patient noted many stone fragments in urine strainer the previous morning, nothing this morning. -Significant L sided back and flank pain with minimal control on 4mg morphine Q3H and IV Tylenol 1000mg Q8H initially. -Patient notes no pain with Dilaudid GUEST ROOM ATTENDANT, has been trying to reduce her use. -Encouraged transition to PO analgesics with Oxycodone 5mg Q4H and Tylenol 650mg and only using the Dilaudid GUEST ROOM ATTENDANT only after 45 minutes of no pain relief - Pat ient noted understanding. -Urology Consulted and following, appreciate recs -Initially recommend trial with pain control and fluid hydration in hopes patient can pass stone on own. -Due to uncontrolled and significant pain, low-dose abdomen/pelv CT was ordered for more accurate diagnosis of pts renal stones -No surgical management at this time - will watch patient for 24 more hours and determine if surgery needed at that time. -Pt set up with Urology outpatient. -Continue IV Fluids -Urine Culture negative. Hydronephrosis -Bilateral hydronephrosis, L>R, noted on Renal Ultrasound -Secondary to renal stone -Plan as above. Nausea -Zofran 4mg IV Q6h PRN -Promethazine 12.5mg Q6H PRN -Patient at 31 weeks of current intrauterine . -Concern was had initially that patient was in labor based on the description of her pain, ruled out by OBGYN and returned to Med/Surg. -OBGYN continuing to follow. FEN/GI - Normal diet, NSS 125ml/hr, Dilaudid GUEST ROOM ATTENDANT DVT - SCD's Code - Full Dispo - Med/Surg (2) Hydronephrosis: (3) : (4) Nausea: Supervising Physician Co-Signing Physician Notes I personally examined the patient and verified all calixto points of history and exam, discussed case, and agree with decision making with Dr Thomas. feeling a little better than earlier but still having a good deal of pain. going to talk w urology this afternoon about possible cysto. has d/w LANDS RESOURCE MANAGER already as well vitals noted nad breathing unlabored no accessory muscles good effort renal colic, nephrolithiasis, ureterolithiasis -still quite symptomatic, although off and on -will d/w urology about possible procedure this afternoon, d/w her about ongoing watchful waiting depending on symptoms -not septic, not in renal failure -LANDS RESOURCE MANAGER already d/w about possible worst case scenario of distress and stat Csection at 31wks - pt and aware. i d/w LANDS RESOURCE MANAGER risk benefit and we agree and d/w pt and extensively who agreed as well - will give dose of betamethasone in case of the unlikely event of deterioration requiring stat section - while chances of this occuring are low, hastening lung maturity would be of significant benefit, and given maternal and situation, risk appears quite low. otherwise as above Subjective Attending physician Dr. Jon. Patient seen and examined at the bedside this AM. She notes that she has been trying to use the Dilaudid GUEST ROOM ATTENDANT less recently. Notes that overnight she only hit the button 3-4 times. Notes she has not asked for oral pain medication at this point in time as she wasn't aware it was available. Notes that she is unsure of whether or not there are plans for surgery later this afternoon, but will be discussing it with Dr. Ramachandran later today. Review of Systems Constitutional: no fever and no chills Ear, Nose, Mouth, Throat: no tinnitus and no dizziness Respiratory: no cough, no dyspnea and no pain on inspiration Cardiovascular: no chest pain, no dyspnea on exertion, no palpitations and no edema Gastrointestinal: + nausea; no abdominal pain, no vomiting, no constipation and no diarrhea/loose stools Genitourinary: + flank pain (minimal with Dilaudid GUEST ROOM ATTENDANT, L); no dysuria and no hematuria Several stone fragment passage Musculoskeletal: + back pain Physical Exam Constitutional: well developed, well nourished and + well hydrated; not in distress Eyes: PERRL, conjunctivae normal, anicteric sclerae normal visual brand by confrontation ENMT: external ear and nose normal, oropharynx normal Neck: trachea midline, no thyromegaly Respiratory: normal respiratory effort, lungs clear to auscultation Cardiovascular: RRR, no murmur, no edema Gastrointestinal (Abdomen): Inspection/Auscultation: abdomen normal to insp ection, + abdomen distended (31 week intrauterine ) and normal bowel sounds Percussion/Palpation: abdomen soft Musculoskeletal: no cyanosis or clubbing, extremities motor strength 5/5 Skin: no rashes, warm and dry Neurologic: PERRL, EOMI, accommodation nl, no face palsy, no dysarthria Psychiatric: Orientation: alert and oriented x 3 Genitourinary: + CVA tenderness (L ) Results & Data Vital Signs (Past 12 Hours) Vital Signs Temp Pulse Resp BP BP Pulse Ox 02/25/19 11:23 97.9 F 70 18 112/74 100 02/25/19 06:00 98.4 F 78 18 96/58 L 95 02/25/19 03:47 98.4 F 72 16 93/50 L 97 Medications Administered Current Inpatient Medications Acetaminophen (Tylenol) 650 mg PO Q6H PRN PRN Reason: Pain Stop: 03/26/19 13:23 Docusate Sodium (Colace) 100 mg PO BID SRINIVAS Stop: 03/09/19 20:59 Last Admin: 02/25/19 08:37 Dose: 100 mg Documented by: Hydromorphone HCl () 30 mg IV PRN PRN; Protocol PRN Reason: GUEST ROOM ATTENDANT Pain Titration Stop: 03/09/19 15:58 Last Admin: 02/23/19 17:29 Dose: 30 mg Documented by: Sodium Chloride (Nss 1000ml) 1,000 mls @ 125 mls/hr IV .Q8H SRINIVAS Stop: 03/24/19 23:30 Last Admin: 02/25/19 14:04 Dose: 125 mls/hr Documented by: Sodium Chloride (Nss 1000ml) 1,000 mls @ 15 mls/hr IV .Q24H SRINIVAS Stop: 03/09/19 15:59 Last Admin: 02/25/19 15:33 Dose: Not Given Documented by: Naloxone HCl (Narcan) 0.1 mg IV Q5M PRN; Protocol PRN Reason: Oversedation/Resp Depression Stop: 03/09/19 15:58 Ondansetron HCl (Zofran) 4 mg IV Q6H PRN PRN Reason: Nausea Stop: 03/24/19 23:30 Last Admin: 02/24/19 00:11 Dose: 4 mg Documented by: Oxycodone/Acetaminophen (Percocet 5mg/325mg) 1 tab PO Q4H PRN PRN Reason: Pain Stop: 03/10/19 13:23 Prenat Multivit/Ceiba/Iron/Folic Ac ( Vitamin) 1 tab PO DAILY SRINIVAS Stop: 03/25/19 08:59 Last Admin: 02/25/19 08:37 Dose: Not Given Documented by: Promethazine HCl (Phenergan) 12.5 mg PO Q6H PRN PRN Reason: Nausea And Vomiting Stop: 03/25/19 01:15 Last Admin: 02/23/19 01:42 Dose: 12.5 mg Documented by: PG Care Time/CCT Total # of Minutes Spent Total Time Spent with Patient: Total time spent is greater than 50% in coordination of care (as documented) at patient's floor/unit and/or counseling patient: Resident Activity Tracking Resident Involvement: Resident Care Provided Care Provided: Adult Hospital Medicine (1) Hydronephrosis Hydronephrosis type: unspecified Qualified Code(s): N13.30 - Unspecified hydronephrosis (2) Weeks of gestation: 30 weeks Qualified Code(s): Z3A.30 - 30 weeks gestation of
[2019-02-25] MEDS ORDERED: BETAMETH SOD PHOS/ACETATE IA 6 MG/ML IM ONE (14:00)
--- NOTE | 2019-02-25 14:35 | Communication Note ---
Date of Service: February 25, 2019 After the patient spoke with Dr. Ramachandran, they have decided to wait and give the stones more time to pass. She has declined transfer at this point. We will continue to follow.
[2019-02-26] MEDS: SODIUM CHLORIDE 0.9% 1000ML 1,000 ML IV SCH ×2 (04:45→16:03)
[2019-02-26] MEDS: PRENATAL VITAMIN 1 TAB PO SCH (07:41)
[2019-02-26] MEDS: DOCUSATE SODIUM 100 MG CAP PO SCH (07:42)
--- NOTE | 2019-02-26 07:44 | Obstetrical Progress Note ---
Date of Service February 26, 2019 Assessment & Plan (1) Hydronephrosis: We are going to try to avoid a surgical procedure at this time. Will be D/c LIGHT COIL WINDER and transitioning to oral pain meds. If able to do well on this , sounds like will d/c home, maybe tomorrow. Continue to strain urine and close f/u with urology. Will need a short term f/u with ob like within the week after d/c. Patient understands the more time we get, the less likely will need significant intervention. If can get to [address], [address] Ramachandran noted could place a stent. Ultimately would like to get her to 37 weeks, then could consider an induction. (2) Renal colic on left side: (3) Ureterolithiasis: Subjective Patient did well overnight. Admits to pain on the right side last night requiring pain meds. Notes +FM. no vb/lof/contractions. Dr. Ramachandran visited while I was there. No n/v. Tolerating a regular diet. Did not pass any stones last night. Still straining urine. Review of Systems Review of Systems: All systems reviewed & are unremarkable except as noted in HPI & below Physical Exam Constitutional: WD/WN, vitals as above Cardiovascular: Extremities: + edema (trace edema) Gastrointestinal (Abdomen): soft, gravid, nt Results & Data Vital Signs (Past 12 Hours) Vital Signs Temp Pulse Resp BP Pulse Ox 02/26/19 07:29 36.7 C 68 18 104/62 97 02/26/19 03:12 36.6 C 86 17 126/71 97 02/25/19 23:00 36.8 C 72 16 99/68 L 96 02/25/19 21:02 37.1 C 71 18 144/76 H 99 PG Care Time/CCT Total # of Minutes Spent Total Time Spent with Patient: Total time spent is greater than 50% in coordination of care (as documented) at patient's floor/unit and/or counseling patient: (1) Hydronephrosis Hydronephrosis type: with renal calculous obstruction Qualified Code(s): N13.2 - Hydronephrosis with renal and ureteral calculous obstruction
--- NOTE | 2019-02-26 10:15 | Urology Progress Note ---
Date of Service February 26, 2019 Assessment & Plan (1) Hydronephrosis: Distal left ureteral calculi, Pain currently controlled, she understands there is a substantial risk that she could have recurrent renal colic For the time being we will attempt to manage this conservatively DC STEM TEACHER, transition to oral meds, potential DC home later today if she continues to do well Subjective No major issues overnight, she had some pain last evening but did not require narcotic use from midnight until this morning She was seen this morning in conjunction with Dr. Hein We have discussed different options For the time being, it seems that she is most content with continued observation and intervention only if necessary, with the thought that the further along she is in the fewer risks there are to intervening. Review of Systems Review of Systems: All systems reviewed & are unremarkable except as noted in HPI & below Physical Exam Physical Exam: Gravid Constitutional: well developed and well nourished Respiratory: no respiratory distress Cardiovascular: Extremities: no pedal edema Gastrointestinal (Abdomen): Inspection/Auscultation: abdomen normal to inspection Results & Data Vital Signs (Past 12 Hours) Vital Signs Temp Pulse Resp BP Pulse Ox 02/26/19 07:29 36.7 C 68 18 104/62 97 02/26/19 03:12 36.6 C 86 17 126/71 97 02/25/19 23:00 36.8 C 72 16 99/68 L 96 PG Care Time/CCT Total # of Minutes Spent Total Time Spent with Patient: Total time spent is greater than 50% in coordination of care (as documented) at patient's floor/unit and/or counseling patient:
[2019-02-26] MEDS: ONDANSETRON INJ 2 MG/ML 2 ML VIAL IV PRN (12:21)
--- NOTE | 2019-02-26 17:55 | Discharge Summary ---
Date of Service February 26, 2019 Admission HPI Per Admitting Provider 38-year-old G7, P3 female, 31 weeks presents with presumed kidney stones. The patient began having the left flank and abdominal pain starting today around 1500. She also complains of associated nausea and vomiting. She states that she was in the ED last Sunday with right-sided symptoms. She was discharged from the emergency room and subsequently passed 2 stones that evening. She has a past medical history significant for kidney stones and has seen Dr. Ramachandran in the past. She denies fevers, chills. She has had an episode of hematuria. She denies any dysuria. She is producing urine, but states reduced output. Patient reports movements, denies vaginal bleeding or discharge. Review of systems No fevers, chills, night sweats. Abdominal pain present left-sided, nausea and vomiting present. Denies chest pain, palpitations, shortness of breath. Principal Diagnosis Nephrolithiasis, ureterolithiasis, hydronephrosis, intractable pain. All improved. Discharge Exam In general she is awake and alert pleasant no distress. HEENT normocephalic atraumatic mucous membranes moist. Breathing unlabored no accessory muscle use good effort. Skin shows no rashes no pallor or icterus. Neuro shows no focal deficits. Discharge Data Allergies Allergy/AdvReac Type Severity Reaction Status Date / Time latex Allergy Mild redness/willy Verified 02/22/19 18:44 h Cipro Allergy Unknown RASH Verified 10/17/17 17:17 ciprofloxacin Allergy Unknown RASH Verified 02/22/19 18:44 Consultations 02/22/19 20:32 ED Decision to Admit Stat 02/22/19 23:31 Consult Urology Routine 02/23/19 12:58 Consult Obstetrics Routine Procedures Performed Operation Date: 02/25/19 07:00 <No data on this case meets the specified criteria> Ordered Studies 02/22/19 18:32 US renal/blad retro comp Stat 02/23/19 15:58 CT abd pelvis wo con Urgent Hospital Course (1) Renal colic: Patient is a 38F at 31 weeks who presents initially with complaint of L flank pain that does not improve with OTC analgesics. Renal Colic -had intractable pain due to stones, hydronephrosis -initially on diluaded DRY ROOM ATTENDANT, concern on if she would need cysto - fortunatley over time with supportive care pain was under enough control for trial of care at home -home on acetaminophen with oxycodone for breakthrough/severe pain Hydronephrosis -Bilateral hydronephrosis, L>R, noted on Renal Ultrasound -Secondary to renal stone -Plan as above. Nausea -improved, tolerating PO intake well -Patient at 31 weeks of current intrauterine -WET POUR MIXER saw pt as well; no active labor -betamethasone given x1 due to concern on risk of procedure and then possible risk of labor or distress necessitating emergent Csection - after extensive d/w pt and on risk/benefit stable for home outpt urology and OB f/u (2) Hydronephrosis: (3) : (4) Nausea: Total Time Total Time Spent Total Time Spent (In Minutes): Greater than 30 Discharge Plan Discharge Items Patient Disposition: Home - Self-Care Reason For Visit: KIDNEY STONES,HYDRONEPHROSIS Discharge Diagnosis: Left sided Kidney stones with hydronephrosis Activity: Resume your previous activity Non-emergency contact: Primary Care Provider and Supervisor [employer] Call non-emergency contact if: you have any medication questions, your symptoms worsen, your pain is not controlled and your temperature is above 101 Follow-up/Referrals: [facility] [place] [facility] [Provider Group] - 03/04/19 11:20 am (Please, follow up at [facility] OB Office on SundayMarch 04 at 11:20 am. *If you need to change this appointment, call the office at [phone].) Tomy Ramachandran MD [Physician] - 03/12/19 1:15 pm (Please, follow up at the [facility] Urology Office with Dr. Ramachandran on SundayMarch 12 at 1:15 pm. *The office is located at [address] [place] [address] in [place]. If you need to change this appointment, call the office at [phone].) Pete Newberry MD [Primary Care Provider] - Diet: Regular Addtl Attending Provider Instructions: kidney stones -unfortunately you are no stranger to stones; fortunately this current situation has improved to where it's safe to have you try at home -stay well hydrated - try for the better part of 80 ounces of fluid a day (and maybe use 60 oz or less as a benchmark of "i'm not drinking enough, do i need help with IVs") -use pain medications as needed as we discussed: start with tylenol (acetaminophen) (stay under 2000mg most days, max of 3000mg in a day if it's not that often) and then if the tylenol isn't helping enough, use the oxycodone for pain not relieved with the tylenol alone. the acetaminophen from the oxycodone (as opposed to a percocet, which is both combined in the same pill) will allow you better flexibility on being minimalist and only taking as much as you need for reasonable pain control -obviously with stones, if the pain is bad and not being relieved with the meds you have at home, it's time to come back to the hospital -likewise, stones and a fever equals a potential emergency so we'd want you here john should that happen -because of the small possibility that you would've needed a procedure, and because of the small possibility that the baby could've shown distress during the procedure leading to an emergency delivery, we gave you a dose of betamethasone to help accelerate lung maturity. fortunately this time you didn't need a procedure and everything is looking good with the baby, but for your peace of mind, we're now in a safer position if the baby were to be delivered prematurely. Pending Studies at Discharge: No Stand-Alone Forms: My [facility], Opioid Pain Management, Smoking Cessation Medications and DC Order Prescriptions: New oxycodone 5 mg tablet 5 mg PO Q6H PRN (Reason: pain) Qty: 10 RF: 0 Continued prenat.vits,james,dea-sjcg-reftg 1 tab PO DAILY RF: 0 ondansetron 4 mg tablet,disintegrating 4 mg PO Q6H PRN (Reason: Nausea And Vomiting) RF: 0 acetaminophen [Tylenol Extra Strength] 500 mg Tablet 500 mg PO DIRECTED PRN (Reason: Pain) RF: 0 Discontinued oxycodone-acetaminophen 5-325 mg tablet 1 tab PO Q8H PRN (Reason: Pain) RF: 0 Discharge Orders: Discharge Order (Routine); Ordered 02/26/19 Ordered By: Lino Jon Admission Data Admit Date/Time: 02/22/19 21:44 Attending Provider: Lino Jon Admit Provider: Azalia Farfan Primary Care Provider: Pete Newberry Other Providers: Reina Garcia ; Dario Dee I. ; Azalia Farfan ; Merlene Ford Other Interventions: Discharge Summary Assessment (RN) Last Done: 02/26/19 17:23
== END 2019-02-26 17:54 | disposition home or self-care (01) | DRG 832 ==
LOC: ED 18:12 → 3W 21:44 → SUATTDRO 21:44 → 3W 22:48 → 4S1 02-23 12:59 → 3W 02-23 16:02 → 3N 02-23 16:15

== ENCOUNTER 2019-05-03 01:53 | Inpatient (IN) ==
[2019-05-03] MEDS ORDERED: OXYTOCIN 30 UNITS/500 ML BAG IV PRN ×2 (02:24→07:09)
--- NOTE | 2019-05-03 02:27 | History & Physical Report ---
Date of Service May 03, 2019 Assessment & Plan (1) Uterine scar from previous delivery, antepartum condition or complication: 38yo at 40.5 weeks GA. Labor. 1. Fetus Cat1 2. Labor. Will AROM with next check. Augment PRN 3. TOLAC: Hx of x2. Risks and consents previously discussed and reviewed today 4. Vital: WNL 5. HSV: No S/S of lesion (2) Supervision of elderly multigravida: History of Present Illness Primary Care Provider: NO PCP 38yo at 40.5 weeks GA. Present for labor. Patient zheng Hx of LTCS x1 with x2. Denying LOF, VB at admission. Good FM. complicated by AMA, CIN1, HSV Allergies Allergy/AdvReac Type Severity Reaction Status Date / Time latex Allergy Mild redness/willy Verified 05/03/19 02:40 h Cipro Allergy Unknown RASH Verified 10/17/17 17:17 ciprofloxacin Allergy Unknown RASH Verified 05/03/19 02:40 Home Medications Home Medications Medication Instructions Recorded Confirmed Type vit-iron fum-folic ac 1 tab PO DAILY 05/03/19 05/03/19 History [ Vitamin] valacyclovir [Valtrex] 500 mg PO DAILY 05/03/19 05/03/19 History Patient History Medical History Fissure of female nipple History of kidney stones History of kidney stones History of nephrolithiasis History of ovarian cyst History of renal calculi History of spontaneous History of varicella LGSIL (low grade squamous intraepithelial dysplasia) Right lower quadrant abdominal pain (Resolved) UTI (urinary tract infection) (Resolved) Surgical History H/O cystoscopy (Resolved) H/O lithotripsy (Resolved) History of delivery (Resolved) History of lithotripsy S/P section S/P eye surgery S/P LEEP (loop electrosurgical excision procedure) Family History Father Hypertension Prostate cancer Grandmother (Maternal) Ovarian cancer Social History Preferred Language: Kiswahili Communication Ability: Effective Family Life Educator Required: No Beliefs That Will Affect Care: None marital status: Current Living Situation: Spouse and Family Other Information That Helps Us Care for You: No Feels Safe at Home: Yes Safety Concerns: Feels Safe At This Time Smoking Status: Former smoker Tobacco Type: cigarettes ; Do You Dip or Chew Tobacco: No ; Second Hand Exposure: No ; Tobacco Cessation Education Requested by Patient: No Hx Alcohol Use: No Hx Substance Use: No Physical Exam Constitutional: WD/WN, vitals as above Psychiatric: A+Ox3, euthymic affect Genitourinary: normal external appearance; no external lesions, no external tenderness, no external swelling and no external erythema Manual OB Exam: + cervical dilation 4 cm, + cervical effacement 80% and + station -1 OB Exam Monitor Tracing: + external FHT monitor used, + external uterine monitor used, + category I and + normal FHT variability; no early decelerations present, no late decelerations present and no variable decelerations Results & Data Vital Signs (Past 12 Hours) Vital Signs Pulse BP 05/03/19 02:03 79 117/87
[2019-05-03] MEDS: LACTATED RINGER'S 1,000 ML IV PRN ×2 (02:35→05:00)
[2019-05-03] MEDS ORDERED: BUTORPHANOL TARTRATE 1 MG/ML VIAL IV STA (02:38)
[2019-05-03 02:43] LABS: Hematocrit (blood only) 32.5 % (37-47); Hemoglobin 11.1 g/dL (12.0-16.0); Mean Corpuscular Hemoglobin 29.9 pg (25-34); Mean Corpuscular Volume 87.6 fL (80-100); Mean Platelet Volume 9.9 fL (7.4-10.4); Platelet Count 185 K/uL (130-400); RDW Coefficient of Variation 13.7 % (11.5-14.5); RDW Standard Deviation 43.8 fL (36.4-46.3); Red Blood Count 3.71 M/uL (4.2-5.4)
[2019-05-03 02:56] LABS: Mean Corpuscular Hgb Conc 34.2 g/dL (32-36)
[2019-05-03] MEDS ORDERED: fentaNYL citrate 100 MCG/2 ML VIAL ONE (04:27)
[2019-05-03] MEDS ORDERED: ePHEDrine sulfate 50 MG/ML AMP ONE (04:27)
[2019-05-03] MEDS ORDERED: fentaNYL 2MCG/ML ROPIV 1.25MG/ML 100 ML BAG EPI ONE (04:28)
[2019-05-03] MEDS ORDERED: BUPIVACAINE 0.25% 30 ML VIAL ONE (04:28)
--- NOTE | 2019-05-03 04:34 | Anesthesiology Consultation ---
Date of Service May 03, 2019 Assessment & Plan (1) Encounter for pre-operative examination: Chart Review Chart Review: Acceptable Risk for Labor Epidural Consults Requested none ASA ASA2 Proposed Anesthesia Anesthesia Type: Labor Epidural Risk / Benefits Reviewed With: PT / POA / Parent / Guardian, Accepts Plan and Informed Consent Obtained History Height/Weight Height: 5 ft 5 in Weight: 68.039 kg Allergies Allergy/AdvReac Type Severity Reaction Status Date / Time latex Allergy Mild redness/willy Verified 05/03/19 02:40 h Cipro Allergy Unknown RASH Verified 10/17/17 17:17 ciprofloxacin Allergy Unknown RASH Verified 05/03/19 02:40 Medications Active Medications Generic Name Dose Route Start Last Admin Trade Name Freq PRN Reason Stop Dose Admin Lactated Ringer's 1,000 mls @ 125 mls/hr 05/03/19 02:24 05/03/19 02:35 Lr IV 05/05/19 02:23 999 mls/hr .Q8H PRN Administration L&D Protocol Protocol Past Medical History Medical History Fissure of female nipple History of kidney stones History of kidney stones History of nephrolithiasis History of ovarian cyst History of renal calculi History of spontaneous History of varicella LGSIL (low grade squamous intraepithelial dysplasia) Right lower quadrant abdominal pain (Resolved) UTI (urinary tract infection) (Resolved) Exercise / Class Metabolic Activity II 4-5 Yardwork/Stairs/Walk up hill Past Family History Family History Father Hypertension Prostate cancer Grandmother (Maternal) Ovarian cancer Past Surgical History Surgical History H/O cystoscopy (Resolved) H/O lithotripsy (Resolved) History of delivery (Resolved) History of lithotripsy S/P section S/P eye surgery S/P LEEP (loop electrosurgical excision procedure) Past Anesthesia History No Hx of Anesthesia Complications and No Family Hx of Anesthesia Complications History of PONV No Hx of PONV and No Hx of Motion Sickness Social History Smoking Status: Former smoker tobacco type: cigarettes Do You Dip or Chew Tobacco: No Hx Alcohol Use: No Hx Substance Use: No substance use type: does not use Physical Exam Vital Signs Last Vital Signs Temp 98.6 F 05/03/19 02:11 Pulse 79 05/03/19 02:03 Resp 20 05/03/19 02:11 BP 117/87 05/03/19 02:03 ENMT Mouth: no dentition abnormality Thyromental Distance: > or= 3.5 Finger Breadths Mallampati Class: II Neck normal visual inspection Respiratory normal respiratory effort Auscultation: lungs clear to auscultation bilaterally Cardiovascular Rate/Rhythm: regular rate and regular rhythm Testing Laboratory Results 05/03/19 02:35
[2019-05-03] MEDS ORDERED: DiphenhydrAMINE HCL 50 MG/ML VIAL IV PRN (04:58)
[2019-05-03] MEDS ORDERED: ePHEDrine sulfate 50 MG/ML AMP IV PRN (04:58)
[2019-05-03] MEDS ORDERED: fentaNYL 2MCG/ML ROPIV 1.25MG/ML 100 ML BAG EPI PRN (04:58)
[2019-05-03] MEDS ORDERED: NALBUPHINE HCL INJ 10 MG/ML AMP IV PRN (04:58)
[2019-05-03] MEDS ORDERED: NALOXONE HCL 1 MG in SODIUM CHLORIDE 0.9% 1000ML 1,000 ML IV PRN (04:58)
[2019-05-03] MEDS ORDERED: NALOXONE HCL 0.4 MG/1 ML VIAL/CARP IV PRN (04:58)
[2019-05-03] MEDS ORDERED: ONDANSETRON INJ 2 MG/ML 2 ML VIAL IV PRN (04:58)
[2019-05-03] MEDS ORDERED: ACETAMINOPHEN 325 MG TAB PO PRN (07:09)
[2019-05-03] MEDS ORDERED: bisacodyL 10 MG SUPP PR PRN (07:09)
[2019-05-03] MEDS ORDERED: SUPERCREAM 0.870% 15 GM JAR EXT PRN (07:09)
[2019-05-03] MEDS ORDERED: HYDROCORTISONE ACETATE 25 MG SUPP PR PRN (07:09)
[2019-05-03] MEDS ORDERED: BENZOCAINE 20% AER SPR 82.5 GM CAN EXT PRN (07:09)
--- NOTE | 2019-05-03 07:24 | Anesthesia Procedure Note ---
Date of Service May 03, 2019 Anesthesia Post Epidural Note Vital Signs Vital Signs: Temp Pulse Resp BP Pulse Ox 36.7 C 87 20 125/62 98 05/03/19 06:30 05/03/19 07:19 05/03/19 06:30 05/03/19 07:19 05/03/19 07:03 Notes Mental Status: alert / awake / arousable Nausea / Vomiting: adequately controlled Pain: adequately controlled Airway Patency, RR, SpO2: stable & adequate BP & HR: stable & adequate Hydration State: stable & adequate Neuraxial Anesthesia: was administered and sensory block is resolving Anesthetic Complications: no major complications apparent Epidural: Removed without complications and With tip intact
--- NOTE | 2019-05-03 07:38 | Delivery Summary ---
DATE OF OPERATION: 05/03/2019 PROCEDURE: Vaginal after section with repair of a first-degree perineal laceration. SURGEON: Du Drake MD PREOPERATIVE DIAGNOSES: 1. Single viable at term. 2. History of prior section desiring a trial of labor after section. 3. History of prior successful . 4. History of CIN1. 5. Advanced maternal age. POSTOPERATIVE DIAGNOSES: 1. Single viable at term. 2. History of prior section desiring a trial of labor after section. 3. History of prior successful . 4. History of CIN1. 5. Advanced maternal age. 6. Status post delivery. ESTIMATED BLOOD LOSS: 200 mL. DRAINS: None. FLUIDS: Continuous lactated Ringer. URINE OUTPUT: Not measured. COMPLICATIONS: None. FINDINGS: Viable male infant with weight and Apgars pending. INDICATIONS: Merna is a 38-year-old G7, P3, who presented at 40 weeks 5 days gestational age in active labor. At initial evaluation, the patient was found to be 4-5 cm dilated. The patient progressed in labor without augmentation. She underwent spontaneous rupture of membranes and at that time was found to be complete-complete +2 station with urge to push. DESCRIPTION OF PROCEDURE: The patient progressed to 10 cm dilated, 100% effaced, +2 station, pushed over intact perineum with epidural anesthesia and delivered a viable male infant, weight and Apgars as noted above. The head of the delivered in JAYRO position, rest into right transverse. No nuchal cord was noted. Body and shoulders quickly followed. was noted to be vigorous soon after delivery and was delivered to maternal abdomen. A 1-minute delayed cord clamping was initiated, after which the cord was double clamped and cut. remained on the maternal abdomen as it continued to be vigorous. A cord blood was obtained. Attention was then turned to deliver the placenta, which was delivered intact with 3-vessel cord, gentle cord traction. On inspection of the perineum, vagina, and cervix, there was noted to be a first-degree perineal laceration which was repaired with 3-0 Vicryl in an interrupted stitch. Needle, sponge, and instrument counts were correct at the completion of the case. Both mother and were stable in immediate post-delivery period. I attest to the content of the Intraoperative Record and any orders documented therein. Any exception s are noted below.
[2019-05-03] MEDS: DOCUSATE SODIUM 100 MG CAP PO SCH ×2 (09:40→20:44)
[2019-05-03] MEDS: PRENATAL VITAMIN 1 TAB PO SCH (09:41)
[2019-05-03] MEDS: IBUPROFEN 600 MG TAB PO PRN ×2 (11:49→22:01)
--- NOTE | 2019-05-04 06:31 | Obstetrical Progress Note ---
Date of Service May 04, 2019 Assessment & Plan (1) : PPD#1 doing well. Passed a kidney stone last night, approx 3-4mm. This has been happening all , and she has followup scheduled with urology. Would like to go home. Will DC pending AM labs. Reviewed DC instructions. Subjective Ambulation: ambulating normally Voiding: no voiding problems Diet Tolerance:: regular diet Lochia:: Moderate Doing well, no concerns. Would like to go home. 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 Review of Systems All systems reviewed & are unremarkable except as noted in HPI & below Physical Exam Constitutional WD/WN, vitals as above no acute distress Respiratory normal respiratory effort Cardiovascular Rate/Rhythm: regular rate and regular rhythm Gastrointestinal (Abdomen) Inspection/Auscultation: abdomen normal to inspection; abdomen not distended Percussion/Palpation: abdomen soft Genitourinary OB Exam Abdomen: + fundal height Fundus: + firm; not tender Results & Data Vital Signs (Past 12 Hours) Vital Signs Temp Pulse Resp BP 05/04/19 02:53 36.8 C 70 18 127/77 05/03/19 23:25 36.7 C 64 18 117/78 05/03/19 20:40 36.8 C 73 18 121/81
[2019-05-04 06:42] LABS: Hemoglobin 9.8 g/dL (12.0-16.0)
[2019-05-04] MEDS: PRENATAL VITAMIN 1 TAB PO SCH (08:45)
[2019-05-04] MEDS: DOCUSATE SODIUM 100 MG CAP PO SCH (08:45)
[2019-05-04] MEDS ORDERED: DIPHTHERIA/TETANUS/PERTUSSIS 0.5 ML SYR/VIAL IM ONE (09:00)
[2019-05-04] MEDS ORDERED: bisacodyL 5 MG TABEC PO SCH (20:00)
== END 2019-05-04 11:08 | disposition home or self-care (01) | DRG 807 ==
LOC: OPB 01:53 → 4S1 01:59 → 4S2 09:40